=== PATIENT | female | born 1995 | race Caucasian/White ===

== ENCOUNTER 2022-05-19 14:24 | Outpatient (REF) | payer OTHER, SELFPAY ==
[2022-05-20 13:35] LABS: BV Int Neg Control Negative (Negative); BV Int Pos Control Positive (Positive)
[2022-05-20 15:15] LABS: CT PCR DETECTED (Not Detect.); NG PCR NOT DETECTED (Not Detect.)
[2022-05-27 00:54] LABS: HPV mRNA E6/E7 rflx Not Detected (Not Detected)
== END 2022-05-19 14:25 | disposition home or self-care (01) ==
LOC: HO.LNP 14:24
PROVIDERS: PCP Internal Medicine; Visit Provider Advanced Practice Midwife
DX: Z01.419 Encounter for gynecological examination (general) (routine) without abnormal findings (principal); Z11.3 Encounter for screening for infections with a predominantly sexual mode of transmission; F41.8 Other specified anxiety disorders; F53.0 Postpartum depression
CPT/HCPCS: 0353U; 87480; 87510; 87624; 87660; 88142

== ENCOUNTER 2022-05-25 11:33 | Outpatient (REF) | payer OTHER, SELFPAY ==
[2022-05-25 13:52] LABS: MANUAL DIFF FLAG NO
[2022-05-25 13:56] LABS: Basophils Absolute Auto 0.1 X10*3/uL (0.0-0.2); Basophils Percent Auto 1.2 % (0-2); Eosinophils Absolute Auto 0.3 X10*3/uL (0.0-0.4); Eosinophils Percent Auto 4.2 % (0-4); Hematocrit 40.2 % (37.0-47.0); Hemoglobin 13.4 g/dl (12.0-16.0); Imm Gran Abs Auto 0.01 X10*3/uL (0.00-0.03); Imm Gran Pct Auto 0.2 % (0.0-0.4); Lymphocytes Absolute Auto 2.5 X10*3/uL (1.2-4.9); Lymphocytes Percent Auto 37.7 % (20-40); Mean Corpuscular HGB Conc 33.3 g/dl (31.0-35.0); Mean Corpuscular Hemoglobin 30.7 pg (27.0-33.0); Mean Platelet Volume 10.9 fL (9.4-12.3); Monocytes Absolute Auto 0.4 X10*3/uL (0.1-1.2); Monocytes Percent Auto 6.5 % (2-11); Neutrophils Absolute Auto 3.3 x10*3/uL (2.0-8.3); Neutrophils Percent Auto 50.2 % (45-73); Platelet Count 307 X10*3/uL (160-400); Red Blood Count 4.37 X10*6/uL (4.20-5.50); Red Cell Distribution Width 11.9 % (11.0-16.0); White Blood Count 6.6 X10*3/uL (4.8-10.8)
[2022-05-25 14:34] LABS: HBsAGNum1 0.29 S/CO (0.00-0.99); HIV AB/AG Nonreactive (Nonreactive); HIV Num 1 0.06 S/CO (0.00-0.99); Hepatitis B Surface Antigen Negative (Negative); Syphilis Screen Nonreactive (Nonreactive); ~HepC Num1 0.14 S/CO (0.00-0.79); ~Hepatitis C Antibody Nonreactive (Nonreactive)
[2022-05-25 14:44] LABS: Alanine Aminotransferase 50 U/L (0-31); Anion Gap 10 (12-20); Aspartate Amino Transferase 34 U/L (5-31); Blood Urea Nitrogen 11 mg/dL (9-16); Calcium 9.4 mg/dL (8.4-10.2); Carbon Dioxide 28 mmol/L (22-29); Chloride 106 mmol/L (96-108); Cholesterol 158 mg/dL; Estimated Glomerular Filt Rate > 60; Glucose Fasting 84 mg/dL (60-99); HDL Cholesterol 48 mg/dL; LDL Cholesterol Calculated 95 mg/dl; Potassium 4.3 mmol/L (3.3-5.1); Sodium 140 mmol/L (135-145); Triglycerides 75 mg/dL
[2022-05-25 14:51] LABS: Vitamin D 25-OH Total 24.5 ng/mL (>30)
== END 2022-05-25 11:34 | disposition home or self-care (01) ==
LOC: HO.HMGCLDS 11:33
PROVIDERS: Advanced Practice Midwife; PCP Internal Medicine; Visit Provider Internal Medicine
DX: Z00.01 Encounter for general adult medical examination with abnormal findings (principal); F53.0 Postpartum depression; E55.9 Vitamin D deficiency, unspecified; Z79.3 Long term (current) use of hormonal contraceptives; Z20.2 Contact with and (suspected) exposure to infections with a predominantly sexual mode of transmission
CPT/HCPCS: 36415; 80048; 80061; 82306; 84450; 84460; 85025; 86780; 86803; 87340; 87389

== ENCOUNTER → 2022-08-09 16:33 | Outpatient (AMB) | payer OTHER, SELFPAY ==
--- NOTE | 2022-08-09 16:29 | A.OFFPC_ITS ---
Intake Visit Reasons: 6wk medication review [phone] Allergies Doxycycline Hyclate Allergy (Unknown, Verified 11/01/22 16:13) nausea, vomiting, nausea and vomiting bee venom protein (honey bee) Adverse Reaction (Mild, Verified 11/01/22 16:14) hives Medication List - Last Reconciled 08/09/22 by Marilu Casper MD albuterol sulfate 90 mcg/actuation (ProAir HFA) 1 inh inhalation QID PRN bupropion HCl 150 mg PO QAM cholecalciferol (vitamin D3) 1,250 mcg PO QWEEK 3 months desog-e.estradiol/e.estradiol 0.15-0.02 mgx21 /0.01 mg x 5 1 tab PO DAILY Tobacco use date assessed: 08/09/22 HPI 6wk medication review [phone] HPI Details 26-year-old lady with generalized anxiety , here today for follow-up. She has taking bupropion, and has been receiving counseling regularly, feels that counseling is helping more than the medication. Her anxiety is triggered with certain situational events, and has been able to deal with them through breathing techniques that has been taught to her by her therapist. Would like to stop taking bupropion. Has also been getting frequent migraine headaches, at least 3 times a week for several months now. Has been taking ibuprofen and Excedrin which affords only temporary relief. Has sensation of tingling and sees wavy lines just before headache occurs. FORMERLY [facility], [facility] Medical History Chlamydia infection Encounter for counseling regarding contraception Exercise induced bronchospasm Lump of right breast Migraine headache with aura Mixed anxiety and depressive disorder Persistent headaches depression depression Preeclampsia Rash of face Screen for sexually transmitted diseases Screening for malignant neoplasm of cervix Vitamin D deficiency Well woman exam with routine gynecological exam Surgical History H/O eye surgery No pertinent past surgical history Family History Mother Breast cancer, Onset Age: 46 Mental health disorder Paternal Grandmother Diabetes mellitus Breast cancer Maternal Grandfather Arteriosclerotic heart disease (ASHD) Sister Mental health disorder Social History Housing: Apartment Alcohol intake: former Patient Tobacco Use Status: Never used Tobacco e-Cigarette/Vaping Use: Never Used Current occupational status: employed Cognitive needs: No Hearing needs: No Vision needs: No Female Reproductive History Menstrual Age of Menarche: 13 Questionnaire PHQ-9 Over the last 2 weeks, how often have you been bothered by any of the following problems? 1. Little interest or pleasure in doing things: several days 2. Feeling down, depressed, or hopeless: not at all 3. Trouble falling or staying asleep, or sleeping too much: more than half the days 4. Feeling tired or having little energy: more than half the days 5. Poor appetite or overeating: nearly every day 6. Feeling bad about yourself - or that you are a failure or have let yourself or your family down: not at all 7. Trouble concentrating on things, such as reading the newspaper or watching television: several days 8. Moving or speaking so slowly that other people could have noticed. Or the opposite - being so fidgety or restless that you have been moving around a lot more than usual: not at all 9. Thoughts that you would be better off or of hurting yourself in some way: not at all Total score: 9 Depression Screening Interpretation: Positive Depression Screening Follow-up: Existing condition, In treatment and Community Mental Health Worker F/U [id number] - PHQ-9 Billing: Yes Source: Developed by Drs. Alexis Marina, Lupe Muse, Jaren Shetty and colleagues, with an educational karen from [employer]. Thrive Questionnaire Date Thrive assessed: 04/26/22 CONINE-7 AMB Questionnaire CONNIE-7 Date CONNIE - 7 assessed: 06/28/22 Source: Developed by Drs. Alexis Marina, Lupe Muse, Jaren Shetty and colleagues, with an educational karen from [employer]. Review of Systems Const Denies body aches and Denies fever(s) Card Denies chest pain and Denies dyspnea Resp Denies cough and Denies dyspnea GI Denies abdominal pain, Denies change in bowel habits and Denies heartburn Reports no additional complaints Musc Reports no additional complaints Neuro Reports as per HPI Psych Reports as per HPI Ryan/Lymph Reports no additional complaints Aller/Immun Denies seasonal rhinorrhea Physical exam (Primary Care) Tobacco/Smoking Status: Tobacco use Status Tobacco use date assessed 08/09/22 08/09/22 16:31 Patient Tobacco Use Status Never used Tobacco 08/09/22 16:31 e-Cigarette/Vaping Use Never Used 08/09/22 16:31 PHQ-9: PHQ-9 Score PHQ-9: Total score 9 08/09/22 17:26 Depression Screening Interpretation: Positive Depression Screening Follow-up: Existing condition, In treatment and Community Mental Health Worker F/U Thrive Assessment: Date of Thrive Assessment Date Thrive assessed 04/26/22 08/09/22 16:31 Telehealth Telehealth Location of provider rendering services: practice address Location of patient: address on file Telehealth method: video Patient verbally consented to treatment: Yes Patient verbally consented to billing insurance company: Yes Patient informed of any privacy concerns related to visit: Yes Minutes spent on Phone/Video with Pt.: 15 Assessment and Plan Assessment & Plan (1) Migraine headache with aura: Code(s): G43.109 - Migraine with aura, not intractable, without status migrainosus Plan Prescription sent for sumatriptan to take 1 tablet the onset of headache, may repeat another dose if after 2 hours no complete resolution of headache noted. Started also propranolol 20 mg per tablet to take 1 tablet 3 times a day for migraine prophylaxis. Advised to follow-up if no improvement of symptoms noted on current treatment Medications: New sumatriptan succinate take 1 tab at onset of headache; if no relief, may repeat 1 tab after at least 2 hrs; max = 2 tabs/24 hrs PO 10 tabs 1RF G43.109 - Migraine with aura, not intractable, without status migrainosus propranolol 20 mg PO TID 90 tabs 1RF 30 days G43.109 - Migraine with aura, not intractable, without status migrainosus Discontinued bupropion HCl Discontinued Reason: Duplicate 150 mg PO QAM 90 tabs 1RF F41.8 - Other specified anxiety disorders Coding Level of Care Code Tele Est Pt Level 3 (84810) Diagnoses Migraine headache with aura G43.109
== END ==
PROVIDERS: PCP Internal Medicine; Visit Provider Internal Medicine
DX: G43.109 Migraine with aura, not intractable, without status migrainosus (principal)
CPT/HCPCS: 99213

== ENCOUNTER 2022-08-16 12:56 | Outpatient (REF) | payer OTHER, SELFPAY ==
[2022-08-16 18:25] LABS: CT PCR NOT DETECTED (Not Detect.); NG PCR NOT DETECTED (Not Detect.)
[2022-08-17 08:56] LABS: BV Int Neg Control Negative (Negative)
[2022-08-17 08:57] LABS: BV Int Pos Control Positive (Positive)
== END 2022-08-16 12:57 | disposition home or self-care (01) ==
LOC: HO.LNP 12:56
PROVIDERS: PCP Internal Medicine; Visit Provider Advanced Practice Midwife
DX: A74.9 Chlamydial infection, unspecified (principal); R87.610 Atypical squamous cells of undetermined significance on cytologic smear of cervix (ASC-US); Z20.2 Contact with and (suspected) exposure to infections with a predominantly sexual mode of transmission
CPT/HCPCS: 0353U; 87480; 87510; 87660; 99212

== ENCOUNTER 2022-10-20 09:04 | Outpatient (AMB) | payer OTHER, SELFPAY ==
--- NOTE | 2022-10-20 09:59 | MHC.PC.OV ---
Vital Signs 10/20/22 10:01 Height 5 ft 5 in Weight 110 lb BMI 18.3 BP 100/80 Blood Pressure Location Lt brachial Position Sitting Pulse 64 Pulse Source Pulse Oximeter Pulse Oximetry (%) 96 Oxygen Delivery Method Room Air Intake Visit Reasons: Migraine Medication F/U Intake Note: Pt is here today to f/u medication for migraine: medication not working Allergies Doxycycline Hyclate Allergy (Unknown, Verified 10/20/22 10:20) nausea, vomiting, nausea and vomiting Medication List - Last Reconciled 10/20/22 by Marilu Casper MD albuterol sulfate 90 mcg/actuation (ProAir HFA) 1 inh inhalation QID PRN dzulvgxazv-rcwdxbtxnizrq-mgjv 50-325-40 mg 1 tab PO Q6H PRN desog-e.estradiol/e.estradiol 0.15-0.02 mgx21 /0.01 mg x 5 1 tab PO DAILY propranolol 20 mg PO TID 30 days sumatriptan succinate take 1 tab at onset of headache; if no relief, may repeat 1 tab after at least 2 hrs; max = 2 tabs/24 hrs PO Tobacco use date assessed: 10/20/22 Dental Screening Dental Screen Date: 10/20/22 Did you have a dental visit in the last 12 months?: Yes Did you have a dental problem in the last 6 months where you did not have access to dental care?: No Was dental information given to patient?: Patient has dentist HPI Migraine Medication F/U HPI Details 27-year-old lady here today for follow-up regarding headaches, mainly present in the back of her neck, spreading to the back of scalp and forehead. She states that she has been taking sumatriptan at this started headache which has not helped and has been taking propranolol for prophylaxis which also has not been helping. Still getting headaches 3 to 4 times a week, accompanied by occasional episodes of nausea and vomiting. She also has tried massage therapy, tried applying Salonpas patches to posterior neck which has not afforded any improvement. Patient states that she initially started her migraine headaches when she was younger in her teens, has had MRIs done which all came back negative. FORMERLY [facility] Medical History Chlamydia infection Encounter for counseling regarding contraception Exercise induced bronchospasm Lump of right breast Migraine headache with aura Mixed anxiety and depressive disorder Persistent headaches depression depression Preeclampsia Rash of face Screen for sexually transmitted diseases Screening for malignant neoplasm of cervix Vitamin D deficiency Well woman exam with routine gynecological exam Surgical History H/O eye surgery No pertinent past surgical history Family History Mother Breast cancer, Onset Age: 46 Mental health disorder Paternal Grandmother Diabetes mellitus Breast cancer Maternal Grandfather Arteriosclerotic heart disease (ASHD) Sister Mental health disorder Social History Housing: Apartment Alcohol intake: former Patient Tobacco Use Status: Never used Tobacco e-Cigarette/Vaping Use: Never Used Current occupational status: employed Cognitive needs: No Hearing needs: No Vision needs: No Female Reproductive History Menstrual Age of Menarche: 13 Questionnaire Thrive Questionnaire Date Thrive assessed: 04/26/22 CONNIE-7 AMB Questionnaire CONNIE-7 Date CONNIE - 7 assessed: 06/28/22 Source: Developed by Drs. Alexis Marina, Lupe Muse, Jaren Shetty and colleagues, with an educational karen from [employer]. Review of Systems Const All systems reviewed & are unremarkable except as noted in HPI and below Physical exam (Primary Care) Vital Signs: Last Vital Signs Pulse 64 10/20/22 10:01 BP 100/80 10/20/22 10:01 Pulse Ox 96 10/20/22 10:01 Oxygen Delivery Method Room Air 10/20/22 10:01 BMI result Body Mass Index 18.3 Tobacco/Smoking Status: Tobacco use Status Tobacco use date assessed 10/20/22 10/20/22 10:00 Patient Tobacco Use Status Never used Tobacco 10/20/22 10:00 e-Cigarette/Vaping Use Never Used 10/20/22 10:00 Thrive Assessment: Date of Thrive Assessment Date Thrive assessed 04/26/22 10/20/22 10:00 Const General: comfortable, no acute distress, alert and Physically active Nutritional Appearance: average body habitus Orientation/consciousness: patient oriented x3 HENMT Face and sinus: Yes face symmetric Mouth: Normal oral and palatal mucosa present and moist mucous membranes Eyes General: appearance normal, both eyes and all related structures Neck Neck: Yes full ROM, Yes no lymphadenopathy and Yes supple Thyroid: Thyroid normal Resp Effort & Inspection: normal respiratory effort and able to speak in complete sentences Auscultation: clear to auscultation bilaterally Cardio Rate: regular rate Rhythm: regular rhythm Heart sounds: S1 normal heart sound present and S2 normal heart sound present Back/Spine/Pelvis Other: Tenderness to palpation over paraspinal muscles and cervical area Skin General skin exam: no rashes or lesions noted Neuro General: patient oriented x3, gait normal, moves all extremities, Normal light touch and pain sensation, no focal motor deficits and CN's II-XI intact bilaterally Extrem General: Yes normal to inspection, Yes full ROM, Yes no joint enlargement, Yes no pedal edema and Yes normal gait Assessment and Plan Assessment & Plan (1) Persistent headaches: Code(s): R51.9 - Headache, unspecified Plan: Has already tried sumatriptan, propranolol, ibuprofen and Excedrin as well as massage therapy and Salonpas patches, wall which has not afforded any relief. Short prescription for butalbital-acetaminophen and caffeine given to patient to take only as needed for acute episodes of headache no more than 4 times a day. Urgent referral made for neurology evaluation Orders: Referrals Neurology Referral R51.9 - Headache, unspecified Medications: New opmqghzdak-xgnljlzzmplwg-xwhj 50-325-40 mg 1 tab PO Q6H PRN 20 tabs 0RF headache Coding Level of Care Code Est Pt Level 3 (88169) Diagnoses Persistent headaches R51.9
[2022-10-20 10:01] VITALS: BP 100/80; PULSE 64; O2SAT 96; BMI 18.3
== END 2022-10-20 10:29 | disposition home or self-care (01) ==
PROVIDERS: PCP Internal Medicine; Visit Provider Internal Medicine
DX: R51.9 Headache, unspecified (principal)
CPT/HCPCS: 99213

== ENCOUNTER 2022-11-01 15:38 | Outpatient (AMB) | payer OTHER, SELFPAY ==
--- NOTE | 2022-11-01 16:04 | MHC.OFFWIV ---
Intake Vital Signs 11/01/22 16:13 Height 5 ft 5 in BP 126/84 Blood Pressure Location Lt brachial Position Sitting Pulse 78 Pulse Source Pulse Oximeter Temp 97.9 F Temp Source Oral Pulse Oximetry (%) 99 Oxygen Delivery Method Room Air Intake Visit Reasons: EP allergic reaction to bee sting days ago (lobby) Patient Tobacco Use Status: Never used Tobacco Allergies Doxycycline Hyclate Allergy (Unknown, Verified 11/01/22 16:13) nausea, vomiting, nausea and vomiting bee venom protein (honey bee) Adverse Reaction (Mild, Verified 11/01/22 16:14) hives Do you need a note to return to daycare/school/sports/work: No HPI EP allergic reaction to bee sting days ago (lobby) HPI Details 27-year-old female presents to the office for a sick visit. She was stung by a bee on her foot. [facility] Medical History Chlamydia infection Encounter for counseling regarding contraception Exercise induced bronchospasm Lump of right breast Migraine headache with aura Mixed anxiety and depressive disorder Persistent headaches depression depression Preeclampsia Rash of face Screen for sexually transmitted diseases Screening for malignant neoplasm of cervix Vitamin D deficiency Well woman exam with routine gynecological exam Surgical History H/O eye surgery No pertinent past surgical history Family History Mother Breast cancer, Onset Age: 46 Mental health disorder Paternal Grandmother Diabetes mellitus Breast cancer Maternal Grandfather Arteriosclerotic heart disease (ASHD) Sister Mental health disorder Social History Housing: Apartment Alcohol intake: former Patient Tobacco Use Status: Never used Tobacco e-Cigarette/Vaping Use: Never Used Current occupational status: employed Cognitive needs: No Hearing needs: No Vision needs: No Female Reproductive History Menstrual Age of Menarche: 13 Physical Exam Vital Signs: Last Vital Signs Temp 97.9 F 11/01/22 16:13 Pulse 78 11/01/22 16:13 BP 126/84 11/01/22 16:13 Pulse Ox 99 11/01/22 16:13 Oxygen Delivery Method Room Air 11/01/22 16:13 Extrem Other: Right foot: Swollen, pitting edema over the dorsum of the foot. Assessment & Plan Assessment & Plan (1) Bee sting allergy: Code(s): Z91.030 - Bee allergy status Plan: Patient was advised to discontinue the antibiotics started at the other walk-in. Prednisone called in. If symptoms do not improve to follow-up here. Medications: New epinephrine (EpiPen 2-Addy) 0.3 mg (0.3 mL) IM Q4H PRN 2 ea 0RF anaphylaxis prednisone 60 mg (3 x 20 mg) PO DAILY 9 tabs 0RF Coding Level of Care Code Est Pt Level 3 (95683) Diagnoses Bee sting allergy Z91.030
[2022-11-01 16:13] VITALS: BP 126/84; PULSE 78; TEMP 36.6; O2SAT 99
== END 2022-11-01 16:53 | disposition home or self-care (01) ==
PROVIDERS: PCP Internal Medicine; Visit Provider Internal Medicine
DX: Z91.030 Bee allergy status (principal)
CPT/HCPCS: 99213

== ENCOUNTER → 2022-12-03 15:09 | Outpatient (AMB) | payer OTHER, SELFPAY ==
--- NOTE | 2022-12-03 14:06 | A.OFFPC_ITS ---
Intake Visit Reasons: Discuss fatigue Intake Note: pt is here for discuss fatigue Allergies Doxycycline Hyclate Allergy (Unknown, Verified 12/03/22 17:05) nausea, vomiting, nausea and vomiting bee venom protein (honey bee) Adverse Reaction (Mild, Verified 12/03/22 17:05) hives Medication List - Last Reconciled 12/03/22 by Marilu Casper MD albuterol sulfate 90 mcg/actuation (ProAir HFA) 1 inh inhalation QID PRN tfbvtwvkey-jiriralusdnqw-yyyc 50-325-40 mg 1 tab PO Q6H PRN desog-e.estradiol/e.estradiol 0.15-0.02 mgx21 /0.01 mg x 5 1 tab PO DAILY epinephrine (EpiPen 2-Addy) 0.3 mg (0.3 mL) IM Q4H PRN mecobalamin (vitamin B12) 1,000 mcg PO DAILY Tobacco use date assessed: 10/20/22 Dental Screening Dental Screen Date: 12/03/22 Did you have a dental visit in the last 12 months?: Yes Did you have a dental problem in the last 6 months where you did not have access to dental care?: No Was dental information given to patient?: Patient has dentist HPI Discuss fatigue HPI Details Has been getting frequent headache episodes at least 1 every other week, and often times has to leave early for work or call a sick whenever she has a migraine attack..She has appt with neurology in [place] in December. Would like to see if she can get an FMLA form for work. FORMERLY [facility] Medical History Persistent headaches Migraine headache with aura Chlamydia infection Screen for sexually transmitted diseases Screening for malignant neoplasm of cervix Encounter for counseling regarding contraception Well woman exam with routine gynecological exam Lump of right breast Mixed anxiety and depressive disorder Rash of face depression Vitamin D deficiency depression Exercise induced bronchospasm Preeclampsia Surgical History H/O eye surgery No pertinent past surgical history Family History Mother Breast cancer, Onset Age: 46 Mental health disorder Paternal Grandmother Diabetes mellitus Breast cancer Maternal Grandfather Arteriosclerotic heart disease (ASHD) Sister Mental health disorder Social History Housing: Apartment Alcohol intake: former Patient Tobacco Use Status: Never used Tobacco e-Cigarette/Vaping Use: Never Used Current occupational status: employed Cognitive needs: No Hearing needs: No Vision needs: No Female Reproductive History Menstrual Age of Menarche: 13 Questionnaire Thrive Questionnaire Date Thrive assessed: 04/26/22 I am a: Patient What is your living situation today?: I have a steady place to live Within the past 12 months, did the food you bought not last and you didn't have the money to get more?: Sometimes True Within the past 12 months, did you worry whether your food would run out before you got money to buy more?: Sometimes True AUDIT C Alcohol Use Questionnaire (AUDIT-C) 1. How often do you have a drink containing alcohol?: Monthly or less 2. How many drinks containing alcohol do you have on a typical day when you are drinking?: 1 or 2 3. How often do you have six or more drinks on one occasion?: Never Total Score: 1 CONNIE-7 AMB Questionnaire CONNIE-7 Date CONNIE - 7 assessed: 06/28/22 Feeling nervous, anxious, or on edge: 3 = Nearly every day Not being able to stop or control worryin = More than half the days Worrying too much about different things: 2 = More than half the days Trouble relaxin = More than half the days Being so restless that it is hard to sit still: 1 = Several days Becoming easily annoyed or irritable: 2 = More than half the days Feeling afraid as if something awful might happen: 1 = Several days Total CONNIE-7 score (0-4 normal; 5-9 mild; 10-14 moderate; 15-21 severe): 13 Source: Developed by Drs. Alexis Marina, Lupe Muse, Jaren Shetty and colleagues, with an educational karen from [employer]. Review of Systems Const Reports as per HPI, Denies body aches, Denies daytime sleepiness, Denies fever(s) and Denies malaise Eyes Reports no additional complaints ENT Reports no additional complaints Card Denies chest pain, Denies syncope, Denies rapid heart rate, Denies irregular hea rt rhythm and Denies dyspnea Resp Denies cough and Denies dyspnea GI Denies abdominal pain, Denies change in bowel habits and Denies heartburn Reports no additional complaints Musc Reports no additional complaints Neuro Reports as per HPI and Denies syncope Psych Reports as per HPI Endo Reports no additional complaints Ryan/Lymph Reports no additional complaints Aller/Immun Denies seasonal rhinorrhea Physical exam (Primary Care) Tobacco/Smoking Status: Tobacco use Status Tobacco use date assessed 10/20/22 12/03/22 14:08 Patient Tobacco Use Status Never used Tobacco 12/03/22 14:08 e-Cigarette/Vaping Use Never Used 12/03/22 14:08 Thrive Assessment: Date of Thrive Assessment Date Thrive assessed 04/26/22 12/03/22 14:08 Telehealth Telehealth Location of provider rendering services: practice address Location of patient: address on file Patient Identification confirmed using: Name, : Yes Telehealth method: video Patient verbally consented to treatment: Yes Patient verbally consented to billing insurance company: Yes Patient informed of any privacy concerns related to visit: Yes Minutes spent on Phone/Video with Pt.: 15 Assessment and Plan Assessment & Plan (1) Persistent headaches: Code(s): R51.9 - Headache, unspecified Plan: Takes Fioricet as needed, already has an appointment to see [facility] neurology in December 2022 . Patient advised to bring an FMLA form to clinic to be completed. (2) Vitamin D deficiency: Code(s): E55.9 - Vitamin D deficiency, unspecified Plan: Will check vitamin-D level (3) Fatigue: Code(s): R53.83 - Other fatigue Plan: Ordered CBC with differential, TSH with reflex free T4, vitamin B12 and folic acid, vitamin-D and Lyme titer Orders: Orders Complete Blood Count Auto Diff 12/03/22 E55.9 - Vitamin D deficiency, unspecified, R51.9 - Headache, unspecified, R53.83 - Other fatigue TSH reflex Free T4 12/03/22 E55.9 - Vitamin D deficiency, unspecified, R51.9 - Headache, unspecified, R53.83 - Other fatigue Comprehensive [place]. Panel Fast 12/03/22 E55.9 - Vitamin D deficiency, unspecified, R51.9 - Headache, unspecified, R53.83 - Other fatigue Vitamin B12 and Folate 12/03/22 E55.9 - Vitamin D deficiency, unspecified, R51.9 - Headache, unspecified, R53.83 - Other fatigue Vitamin D 25-OH Total 12/03/22 E55.9 - Vitamin D deficiency, unspecified, R51.9 - Headache, unspecified, R53.83 - Other fatigue Lyme IgG/IgM w/reflex to WB 12/03/22 E55.9 - Vitamin D deficiency, unspecified, R51.9 - Headache, unspecified, R53.83 - Other fatigue Coding Level of Care Code Tele Est Pt Level 3 (51568) Diagnoses Persistent headaches R51.9 Vitamin D deficiency E55.9 Fatigue R53.83
== END ==
PROVIDERS: PCP Internal Medicine; Visit Provider Internal Medicine
DX: R51.9 Headache, unspecified (principal); E55.9 Vitamin D deficiency, unspecified; R53.83 Other fatigue
CPT/HCPCS: 99213

== ENCOUNTER 2022-12-10 08:26 | Outpatient (REF) | payer OTHER, SELFPAY ==
[2022-12-10 11:18] LABS: MANUAL DIFF FLAG NO
[2022-12-10 11:37] LABS: Basophils Absolute Auto 0.1 X10*3/uL (0.0-0.2); Basophils Percent Auto 1.1 % (0-2); Eosinophils Absolute Auto 0.6 X10*3/uL (0.0-0.4); Eosinophils Percent Auto 8.3 % (0-4); Hematocrit 43.7 % (37.0-47.0); Hemoglobin 14.5 g/dl (12.0-16.0); Imm Gran Abs Auto 0.01 X10*3/uL (0.00-0.03); Imm Gran Pct Auto 0.2 % (0.0-0.4); Lymphocytes Absolute Auto 2.1 X10*3/uL (1.2-4.9); Lymphocytes Percent Auto 31.9 % (20-40); Mean Corpuscular HGB Conc 33.2 g/dl (31.0-35.0); Mean Corpuscular Hemoglobin 30.9 pg (27.0-33.0); Mean Platelet Volume 11.3 fL (9.4-12.3); Monocytes Absolute Auto 0.3 X10*3/uL (0.1-1.2); Monocytes Percent Auto 5.1 % (2-11); Neutrophils Absolute Auto 3.6 x10*3/uL (2.0-8.3); Neutrophils Percent Auto 53.4 % (45-73); Platelet Count 271 X10*3/uL (160-400); Red Cell Distribution Width 11.4 % (11.0-16.0); White Blood Count 6.6 X10*3/uL (4.8-10.8)
[2022-12-10 13:05] LABS: Folate 11.6 ng/mL (> or = 4.0); Vitamin B12 650 pg/mL (200-900)
[2022-12-10 14:38] LABS: Alanine Aminotransferase 16 U/L (0-31); Albumin Level 4.3 g/dL (3.5-5.0); Alkaline Phosphatase 45 U/L (39-117); Anion Gap 12 (12-20); Aspartate Amino Transferase 18 U/L (5-31); Bilirubin Total 0.6 mg/dL (0.0-1.0); Blood Urea Nitrogen 10 mg/dL (9-16); Calcium 9.5 mg/dL (8.4-10.2); Carbon Dioxide 25 mmol/L (22-29); Chloride 106 mmol/L (96-108); Estimated Glomerular Filt Rate > 60; Glucose Fasting 91 mg/dL (60-99); Potassium 4.2 mmol/L (3.3-5.1); Sodium 139 mmol/L (135-145); TSH reflex Free T4 1.49 uIU/mL (0.32-4.0); Vitamin D 25-OH Total 66.5 ng/mL (>30)
[2022-12-13 19:44] LABS: Lyme Abs Screen <0.90 index
== END 2022-12-10 08:27 | disposition home or self-care (01) ==
LOC: HO.HMGCLDS 08:26
PROVIDERS: PCP Internal Medicine; Visit Provider Internal Medicine
DX: R51.9 Headache, unspecified (principal); E55.9 Vitamin D deficiency, unspecified; R53.83 Other fatigue
CPT/HCPCS: 36415; 80053; 82306; 82607; 82746; 84443; 85025; 86617; 86618

== ENCOUNTER 2023-01-21 09:52 | Outpatient (AMB) | payer OTHER, SELFPAY ==
--- NOTE | 2023-01-21 10:00 | A.OFFVIS_ITS ---
Intake Vital Signs 01/21/23 10:01 Height 5 ft 5 in Weight 110 lb 2 oz BMI 18.3 BP 120/78 Blood Pressure Location Lt brachial Position Sitting Pulse 69 Pulse Source Pulse Oximeter Pulse Oximetry (%) 100 Oxygen Delivery Method Room Air Intake Visit Reasons: I-[employer]: Headache, unspecified/Sleep disorder-Conf Intake Note: New patient present today for Headache and unspecified sleep disorder. Patient has a history of headaches since the age of 4. No previous treatment. She use to get headaches every other week but now they are migraines every other day. Butalbital seems to help only at times. Migraine can last up to 3 days. Foot Worker Required: No Accompanied by: Self / Same As Patient Allergies Doxycycline Hyclate Allergy (Unknown, Verified 01/21/23 10:12) nausea, vomiting, nausea and vomiting bee venom protein (honey bee) Adverse Reaction (Mild, Verified 01/21/23 10:12) hives Medication List - Last Reconciled 01/21/23 by Danelle Turcios, MARCELINA albuterol sulfate 90 mcg/actuation (ProAir HFA) 1 inh inhalation QID PRN htrxkexghy-yrsmdeebkfjam-pdir 50-325-40 mg 1 tab PO Q6H PRN desog-e.estradiol/e.estradiol 0.15-0.02 mgx21 /0.01 mg x 5 1 tab PO DAILY epinephrine (EpiPen 2-Addy) 0.3 mg (0.3 mL) IM Q4H PRN HPI HPI Comments History of Present Illness Details Right-handed 27-yr-old female presents for new pt evaluation of headache disorder, specifically []. She started having headaches at age 4. At that time, she had neuro work-up which was normal. She has since had headaches on and off, but more recently have been increasing in frequency and severity. In the alst 3-4 months, the headcahe is now every other day. Headache questionnaire: Age/time of onset? 4 yo Preceding causes? None Previous work-up? As a child Typical headache characteristics: Prodrome symptoms? None Aura? Denies. PCP note mentions seeing wavy lines and tingling prior to onset of headache. Location, quality, characteristics? 1st s/s is blurry vision, usually right eye/frontal, right occipital/neck pain. Throbbing pain. Pain intensity? at worst 8-9/10 Associated symptoms? Photophobia, phonophobia, osmophobia, allodynia, N/V, some dizziness, brain fog, activity intolerance, fatigue/tiredness. Focal weakness, Parethesias, Autonomic s/s? Denies Postdrome? Residual headache Triggers? Maybe computer Any positional, valsalva, exertional, sexual activity triggers? None Menstrual triggers? None- on OCP Time of day? No specific time of day Duration? hours-3 days Frequency? Almost every other day- > 15 days per month. How does headache impact your life? Has missed work. 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 Current acute medication use/interventions: Kathy- works at the very [employer], but not always. Previous acute medication use: Sumatriptan 100mg ineffective Current preventative medication use: None Previous preventative medication use: Propranolol 20mg tid x's > 3 months- ineffective. Non-pharmacological interventions: Rest. Heta may help. Other history of headache disorder? None History of musculoskeletal disorders or injury? Has chronic neck and back pain, was told her hips were off- sees a chiropractor. History of concussion/head injury? Softball injury- concussion at age 13-14 yo History of mood disorder? Depression and anxiety- in therapy History of sleep disorder? More recently exhausted all the day. Endorses excessive daytime tiredness. Sleep varies- her 3 yr old son does not sleep well. History of respiratory disease? Activity induced asthma History of CV disease? None History of coagulopathy? None History of endocrine or metabolic disease? None History of seizure? None History of GI disorder? None. Denies constipation. Other? States has both STM and LTM lapses. Has to write everything done- for instance, when she receives a call she needs to write the name and right away. Has been working w/ her therapist. Was not a good student- thinks was r/t depression. Completed high school. Family planning? Does plan to have more children in a year or two. Family history of migraine or other headache disorder? None. [facility] Medical History Persistent headaches Migraine headache with aura Chlamydia infection Screen for sexually transmitted diseases Screening for malignant neoplasm of cervix Encounter for counseling regarding contraception Well woman exam with routine gynecological exam Lump of right breast Mixed anxiety and depressive disorder Rash of face depression Vitamin D deficiency depression Exercise induced bronchospasm Preeclampsia Surgical History H/O eye surgery No pertinent past surgical history Family History Mother Breast cancer, Onset Age: 46 Mental health disorder Paternal Grandmother Diabetes mellitus Breast cancer Maternal Grandfather Arteriosclerotic heart disease (ASHD) Sister Mental health disorder Social History Housing: Apartment Alcohol intake: former Patient Tobacco Use Status: Never used Tobacco e-Cigarette/Vaping Use: Never Used Current occupational status: employed Cognitive needs: No Hearing needs: No Vision needs: No Female Reproductive History Menstrual Age of Menarche: 13 Review of Systems Const Details: See scanned ROS form Physical Exam Vital Signs: Last Vital Signs Pulse 69 01/21/23 10:01 BP 120/78 01/21/23 10:01 Pulse Ox 100 01/21/23 10:01 Oxygen Delivery Method Room Air 01/21/23 10:01 BMI result Body Mass Index 18.3 Const Orientation/consciousness: patient oriented x3 HEENT Other: No palpable scalp tenderness. Head: Yes normocephalic Resp Effort & Inspection: normal respiratory effort and able to speak in complete sentences Neuro Other: EOM intact- left lateral gaze elicits vertical diplopia (pt states can self induce this diplopia) General: patient oriented x3 Cranial nerves: Yes CN's II-XII intact bilaterally Cognition (Neuro): normal cognition Gait exam (Neuro): Normal gait present Motor exam (neuro): 5/5 motor strength present throughout Deep tendon reflexes (DTR's): Right triceps reflex intensity grade: 2+, Left triceps reflex intensity grade: 2+, Rt Biceps (C5, C6): 2+, Left biceps reflex intensity grade: 2+, Right brachioradialis reflex intensity grade: 2+, Left brachioradialis reflex intensity grade: 2+, Right patellar reflex intensity grade: 2+ and Left patellar reflex intensity grade: 2+ Coordination: tzpubb-ql-grbo test normal Pupils: Normal pupillary reactivity/response: bilateral Psych Appearance: grossly normal Mental Status: mental status grossly normal Speech and movement: Normal speech and movement present Affect: normal affect Attitude: cooperative Thought process: Normal thought process present Assessment & Plan Assessment & Plan (1) Migraine headache with aura: Code(s): G43.109 - Migraine with aura, not intractable, without status migrainosus (2) Fatigue: Code(s): R53.83 - Other fatigue (3) Memory difficulties: Code(s): R41.3 - Other amnesia Plan For overall headache management: Discussed importance of good self-care, including but not limited to maintaining a healthy diet, adequate fluid intake, adequate sleep, and engaging in regular physical activity. For headache triggers: Track headaches, especially after any treatment regimen changes. Migraine [employer] is one of many headache tracking apps. Light sensitivity tips: Patient may try blue light filtering glasses, green glasses, green light therapy. For acute headache treatment: Discussed importance of taking acute medications at the first sign of headache, however stressed importance of avoiding acute medication overuse (especially with combined headache medications). Trial Rizatriptan 10mg tab, 1/2 - 1 tab (5-10mg) at onset of headache, may repeat in 2 hours. Max of 2 tabs (200mg) per 24 hours. May adjunct with OTC Tylenol 650mg q 4 hours, Ibuprofen (liquigel) 600mg q 6 hours, or Naproxen (liquigel) 440mg q 12 hrs prn. May continue Fioricet for now- refilled as capsule per pt request (feels more effective)- however goal is to find a more effective agent. Zofran ODT 4-8mg prn (max 6 tabs per day). Previous acute migraine medication trials: Sumatriptan 100mg - ineffective. Acute migraine medication contraindications: For headache prevention medication: Discussed that preventative medications should be taken routinely as prescribed for best effect, it may take several weeks for full effect to take effect. Start Riboflavin 400mg qam Start Magnesium 400mg qhs Start Topiramate 25-50mg qhs. Previous migraine prevention medication trials: Propranolol 20mg tid- ineffective after > 12 wks. Migraine prevention medication contraindications: Would avoid Amitriptyline d/t pt is alone at home w/ very young children. Future considerations: CGRP MaB Monitor effect of above on fatigue and cognitive difficulties. Future considerations: sleep study, neuro-psych eval. Pt to follow-up in 3-4 months or sooner prn. Medications: New topiramate 25 - 50 mg (1 - 2 x 25 mg) PO BEDTIME 30 days 60 tabs 3RF ondansetron Max 6 tabs per day 4 - 8 mg (1 - 2 x 4 mg) PO Q6-8H 30 days PRN 30 tabs 2RF nausea and vomiting magnesium oxide may hold for loose stools 400 mg PO BEDTIME 30 days 30 tabs 6RF riboflavin (vitamin B2) 400 mg PO DAILY 30 days 30 tabs 6RF rizatriptan max 2 tabs per day or 4 tabs per week 5 - 10 mg (0.5 - 1 x 10 mg) PO Q2H 21 days PRN 12 tabs 3RF migraine headache odcxnmxtlt-cmojxkspbqcvl-hatf 50-325-40 mg max 2 caps per day or 4 caps per week 1 cap PO Q4H 30 days PRN 20 caps 2RF pain Coding Level of Care Code New Pt Level 4 (57272) Diagnoses Migraine headache with aura G43.109 Fatigue R53.83 Memory difficulties R41.3
[2023-01-21 10:01] VITALS: BP 120/78; PULSE 69; O2SAT 100; BMI 18.3
== END 2023-01-21 11:13 | disposition home or self-care (01) ==
PROVIDERS: PCP Internal Medicine; Visit Provider Nurse Practitioner Family
DX: G43.109 Migraine with aura, not intractable, without status migrainosus (principal); R53.83 Other fatigue; R41.3 Other amnesia
CPT/HCPCS: 99204

== ENCOUNTER → 2023-01-21 09:52 | Outpatient (BNVA) | payer OTHER, SELFPAY | PROVIDERS: PCP Internal Medicine; Visit Provider Nurse Practitioner Family ==

== ENCOUNTER → 2023-05-26 14:59 | Outpatient (BNVA) | payer OTHER, SELFPAY | PROVIDERS: Visit Provider Advanced Practice Midwife ==

== ENCOUNTER 2023-05-27 13:10 | Outpatient (AMB) | payer OTHER, SELFPAY ==
[2023-05-27 13:19] VITALS: BP 110/76; BMI 18.1
--- NOTE | 2023-05-27 13:19 | A.OFFVIS_ITS ---
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 It Support Consultant Required: No Information Interpreted: clinical only Mammal Control Agent: Mammal Control Agent Present Allergies Doxycycline Hyclate Allergy (Unknown, Verified 05/27/23 13:20) nausea, vomiting, nausea and vomiting bee venom protein (honey bee) Adverse Reaction (Mild, Verified 05/27/23 13:20) hives Medication List - Last Reconciled 05/27/23 by Kimmy Chairez CNM albuterol sulfate 90 mcg/actuation (ProAir HFA) 1 inh inhalation QID PRN rizatriptan 5 - 10 mg (0.5 - 1 x 10 mg) PO Q2H PRN 21 days Is last menstrual period known: Yes Last menstrual period: 05/30/23 Do you need a note to return to daycare/school/sports/work: No HPI 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 She does however notice that she does get premenstrual mood changes and she noticed that a lot when she was on pills to and she is feeling generally speaking better mood salazar since she has been off the pills. She has not been contraceptive thing since and has just been crossing her fingers she has a 1-year-old and a 2-year-old. She got from her ex- in the past year and says this was a good thing. She had chlamydia last year as well as a Pap smear that was abnormal and that was soon after she had started with this particular partner they have both been treated for the chlamydia and she is hoping it is gone she has no current worries about STDs as that testing was soon after they had started. She is interested in starting another method of control and we reviewed all of the methods through this visit. ON LICENSE OF [facility] Medical History (Updated 05/27/23 @ 14:06 by Kimmy Chairez CNM) Persistent headaches Migraine headache with aura Chlamydia infection Screen for sexually transmitted diseases Screening for malignant neoplasm of cervix Encounter for counseling regarding contraception Well woman exam with routine gynecological exam Lump of right breast Mixed anxiety and depressive disorder Rash of face depression Vitamin D deficiency depression Exercise induced bronchospasm Preeclampsia Surgical History H/O eye surgery No pertinent past surgical history Family History Mother Breast cancer, Onset Age: 46 Mental health disorder Paternal Grandmother Diabetes mellitus Breast cancer Maternal Grandfather Arteriosclerotic heart disease (ASHD) Sister Mental health disorder Social History Housing: Apartment Alcohol intake: former Patient Tobacco Use Status: Never used Tobacco e-Cigarette/Vaping Use: Never Used Current occupational status: employed Cognitive needs: No Hearing needs: No Vision needs: No Female Reproductive History Menstrual Age of Menarche: 13 Duration of menses: 3-5 days Date of last menstrual period: 05/30/23 control method: none Total pregnancies: 3 Full term: 2 Date of last pap smear: 05/20/22 (epithelial cell abnormality) History of abnormal pap smear: Yes Physical Exam Vital Signs: Last Vital Signs BP 110/76 05/27/23 13:19 BMI result Body Mass Index 18.1 Const General: healthy appearing, comfortable, no acute distress, well developed and alert Nutritional Appearance: average body habitus Orientation/consciousness: patient oriented x3 Limitations: no limitations HEENT Head: Yes normocephalic Neck Neck: Yes normal visual inspection Chest Chest palpation & inspection: normal inspection of the chest Breast/axilla inspection: normal inspection of the breasts and normal inspection of the axillae Breast/axilla palpation: normal palpation of the breasts and normal palpation of the axillae Resp Effort & Inspection: normal respiratory effort GI Inspection: Yes normal to inspection, No Abdominal wall edema and No distended Palpation (GI): Soft to palpation and nontender Other: Vagina pink and moist cervix multiparous pink smooth nonfriable abundant creamy discharge. Uterus small anteverted slightly levo rotated nontender mobile adnexa nontender good tone with Kegel General: Yes bladder normal to palpation External Female Exam: normal external appearance and normal appearance of the urethra Speculum Exam - Vagina: normal appearance of the vagina, normal palpation and normal vaginal discharge Speculum Exam - Cervix: normal appearance of the cervix, normal palpation and nontender Bimanual exam- vagina & uterus: normal bimanual exam, normal palpation, uterine size normal, bladder normal to palpation, consistency normal, normal palpation, uterine mobility normal, uterine shape normal, No Cervical tenderness present, non-tender and no cervical motion tenderness Bimanual Exam- Adnexa, other: normal adnexae, no masses, normal and No adnexal tenderness Neuro General: patient oriented x3 Assessment & Plan Assessment & Plan (1) ASCUS of cervix with negative high risk HPV: Comment: 05/20/22 pap= ascus w neg hpv./ 2' screening hx, consider repap 1 yr instead of 3 yrs Code(s): R87.610 - Atypical squamous cells of undetermined significance on cytologic smear of cervix (ASC-US) (2) Chlamydia infection: Comment: 05/20/2022, to be Rx with doxy Cyclen x7 days, partner treatment and other testing; testing done with annual testing 05/27/2023. Discussed at length. Code(s): A74.9 - Chlamydial infection, unspecified (3) Worsening headaches: Comment: Patient states they resolved after she stopped the combination control pills. Discussed all available options not containing estrogen today, she chose and will start on progestin only pills with the next menses Code(s): R51.9 - Headache, unspecified (4) Migraine headache with aura: Code(s): G43.109 - Migraine with aura, not intractable, without status migrainosus (5) BCP ( control pills) initiation: Code(s): Z30.011 - Encounter for initial prescription of contraceptive pills Plan -----Discussed in this visit the following: healthy balanced diet, regular and consistent exercise, getting recommended health screens, doing the best she can for her particular health concerns, kegel exercises, pap smear screening and followup recommendations, mammography screening and SBE, normal changes in cycles in her life stage--- .-I reviewed with the patient, all of the currently common used methods of control that are available. We reviewed how they work in the body, how they are taken, common side effects, uncommon side effects, precautions, and contraindications. -Discussed also factors that influence their effectiveness and use, and womens satisfaction with the method. -Discussed how each are used, and drawbacks of each method as well. -Methods covered included: condoms, control pills, control patches, control rings, Depo-Provera, Nexplanon, Mirena and Kyleena IUDs, and ParaGard IUDs. If interested, we also covered methods such as diaphragms, cervical caps, tubal ligations, vasectomies, abstinence, fertility awareness and Plan B. ---Discussed STIs, exposure, transmission, symptoms, and prevention, Testing was ordered/ performed as per plan and orders. Testing for STIs done today she did not feel she needed any blood work for HIV or other tests. She is confident about her partner this year as now they have been steadily together for year. Will reassess for the chlamydia and treat as necessary. Safer sex discussed. Prescription sent for progestin only pills. I recommend she start them with the 1st full day of her next period whenever that is I reviewed her menses on the appt and it appeared that she has data that makes the appt tell her she is going to get her next period around day 35 which only makes sense if she gets 35 day cycles however that is what it says but regardless I want her to start the pills at the beginning of the next. I reviewed how to take the pills and that there are no placebo pills in this particular formulation and she will will get her. Whenever she would be expected to get it we will see her in 3 months to see how she is doing. Medications: New norethindrone (contraceptive) Start with the beginning of her next period 0.35 mg PO DAILY 84 tabs 3RF Coding Level of Care Code Est Pt Prev Care 18-39y(84330) Diagnoses ASCUS of cervix with negative high risk HPV R87.610 Chlamydia infection A74.9 Worsening headaches R51.9 Migraine headache with aura G43.109 BCP ( control pills) initiation Z30.011
== END 2023-05-27 14:08 | disposition home or self-care (01) ==
LOC: HO.HWSM 13:17
PROVIDERS: PCP Internal Medicine; Visit Provider Advanced Practice Midwife
DX: Z01.419 Encounter for gynecological examination (general) (routine) without abnormal findings (principal); R87.610 Atypical squamous cells of undetermined significance on cytologic smear of cervix (ASC-US)
CPT/HCPCS: 99395

== ENCOUNTER 2023-05-27 13:10 | Outpatient (REF) | payer OTHER, SELFPAY ==
[2023-05-28 05:24] LABS: CT PCR NOT DETECTED (Not Detect.); NG PCR NOT DETECTED (Not Detect.)
[2023-05-28 13:48] LABS: BV Int Neg Control Negative (Negative); BV Int Pos Control Positive (Positive)
== END 2023-05-27 13:11 | disposition home or self-care (01) ==
LOC: HO.LAB 13:10
PROVIDERS: PCP Internal Medicine; Visit Provider Advanced Practice Midwife
DX: Z01.419 Encounter for gynecological examination (general) (routine) without abnormal findings (principal); R87.610 Atypical squamous cells of undetermined significance on cytologic smear of cervix (ASC-US); A74.9 Chlamydial infection, unspecified; R51.9 Headache, unspecified; Z20.2 Contact with and (suspected) exposure to infections with a predominantly sexual mode of transmission; Z79.899 Other long term (current) drug therapy
CPT/HCPCS: 0353U; 87480; 87510; 87660; 88142

== ENCOUNTER 2023-06-10 13:19 | Outpatient (AMB) | payer OTHER, SELFPAY ==
[2023-06-10 14:02] VITALS: BP 120/80; PULSE 97; O2SAT 97
--- NOTE | 2023-06-10 14:02 | AM.OFFWIN_ITS ---
Intake Vital Signs 06/10/23 14:02 Weight 109 lb BP 120/80 Blood Pressure Location Rt brachial Position Sitting Pulse 97 Pulse Source Pulse Oximeter Pulse Oximetry (%) 97 Oxygen Delivery Method Room Air Intake Visit Reasons: EP ? Patient Tobacco Use Status: Never used Tobacco Allergies Doxycycline Hyclate Allergy (Unknown, Verified 06/10/23 14:07) nausea, vomiting, nausea and vomiting bee venom protein (honey bee) Adverse Reaction (Mild, Verified 06/10/23 14:07) hives Do you need a note to return to daycare/school/sports/work: No HPI HPI Comments History of Present Illness Details 27 y/o female patient who presents to nita crawley in clinic for test. Pt is ~ 5 weeks , LMP 05/06/23. Pt asking for Lab result print out. Pt will establish care with Employee Relations Specialist. [facility] Medical History (Updated 05/27/23 @ 14:06 by Kimmy Chairez CNM) Persistent headaches Migraine headache with aura Chlamydia infection Screen for sexually transmitted diseases Screening for malignant neoplasm of cervix Encounter for counseling regarding contraception Well woman exam with routine gynecological exam Lump of right breast Mixed anxiety and depressive disorder Rash of face depression Vitamin D deficiency depression Exercise induced bronchospasm Preeclampsia Surgical History H/O eye surgery No pertinent past surgical history Family History Mother Breast cancer, Onset Age: 46 Mental health disorder Paternal Grandmother Diabetes mellitus Breast cancer Maternal Grandfather Arteriosclerotic heart disease (ASHD) Sister Mental health disorder Social History Housing: Apartment Alcohol intake: former Patient Tobacco Use Status: Never used Tobacco e-Cigarette/Vaping Use: Never Used Current occupational status: employed Cognitive needs: No Hearing needs: No Vision needs: No Female Reproductive History Menstrual Age of Menarche: 13 Review of Systems Const All systems reviewed & are unremarkable except as noted in HPI and below Physical Exam Vital Signs: Last Vital Signs Pulse 97 06/10/23 14:02 BP 120/80 06/10/23 14:02 Pulse Ox 97 06/10/23 14:02 Oxygen Delivery Method Room Air 06/10/23 14:02 Const General: comfortable and no acute distress Orientation/consciousness: patient oriented x3 Neuro General: patient oriented x3, gait normal and moves all extremities Psych Speech and movement: Normal speech and movement present Attitude: cooperative Results AMB Test Urine AMB Test Urine Positive Last Edit by ELIANA Booth on 06/10/23 14:04 Results Reviewed Results Reviewed: Laboratory Last Values Tst Clinic Positive 06/10/23 14:03 Assessment & Plan Assessment & Plan (1) : Code(s): Z34.90 - Encounter for supervision of normal , unspecified, unspecified trimester Qualifiers: Weeks of gestation: less than 8 weeks Qualified Code(s): Z3A.01 - Less than 8 weeks gestation of Plan - Blood HCG ordered - Printed Lab results - Urine HCG Positive. Orders: Orders AMB HCG Urine Test Today Z32.01 - Encounter for test, result positive HCG Quantitative Today Z34.90 - Encounter for supervision of normal , unspecified, unspecified trimester Coding Level of Care Code Est Pt Level 2 (79978) Diagnoses Less than 8 weeks gestation of Z3A.01 Weeks of gestation: less than 8 weeks Time Spent (min) 8
== END 2023-06-10 14:24 | disposition home or self-care (01) ==
PROVIDERS: PCP Internal Medicine; Visit Provider Nurse Practitioner Family
DX: N92.6 Irregular menstruation, unspecified (principal); Z32.01 Encounter for pregnancy test, result positive
CPT/HCPCS: 81025; 99212

== ENCOUNTER 2023-06-10 14:19 | Outpatient (REF) | payer OTHER, SELFPAY ==
[2023-06-10 16:25] LABS: HCG Quantitative 1773 mIU/mL
== END 2023-06-10 14:20 | disposition home or self-care (01) ==
LOC: HO.HMGCLDS 14:19
PROVIDERS: PCP Internal Medicine; Visit Provider Nurse Practitioner Family
DX: Z34.90 Encounter for supervision of normal pregnancy, unspecified, unspecified trimester (principal)
CPT/HCPCS: 36415; 84702

== ENCOUNTER 2023-08-26 14:05 | Outpatient (AMB) | payer OTHER, SELFPAY ==
--- NOTE | 2023-08-26 14:17 | MHC.OFFVIS ---
Vital Signs 08/26/23 14:19 Height 5 ft 5 in Weight 115 lb BMI 19.1 BP 106/72 Blood Pressure Location Rt brachial Position Sitting Pulse 87 Pulse Source Pulse Oximeter Pulse Oximetry (%) 96 Oxygen Delivery Method Room Air Intake Visit Reasons: 4 mo f/u Headache-Confirmed Intake Note: Patient presents for follow up headache. patient is . Allergies Doxycycline Hyclate Allergy (Unknown, Verified 08/26/23 14:23) nausea, vomiting, nausea and vomiting bee venom protein (honey bee) Adverse Reaction (Mild, Verified 08/26/23 14:23) hives Medication List - Last Reconciled 08/26/23 by Danelle Turcios, MARCELINA albuterol sulfate 90 mcg/actuation (ProAir HFA) 1 inh inhalation QID PRN mv-min [id number] 180 mcg-25 mg- 25 mg (Alive Daily Support ) tabs PO norethindrone (contraceptive) 0.35 mg PO DAILY HPI Comments Details: 27-yr-old female presents for f/u visit for migraine. Pt reports she is 16 weeks . Note she became while attempting to adjust her control, in hopes of improving her migraine control. Patient states that her is being followed closely d/t presence of nuchal cord. In her previous 2 pregnancies, she reports she had increased headaches during her , as well as eclampsia and preeclampsia. She was started on ASA 162mg qd. F/B [facility]. Once patient realized she was at 4 weeks, she stopped all her headache medications, other than Tylenol which does not help. She has been having an increase in her typical migraine. She is now missing 1-3 work days per week. She works for [employer], from home, is on a computer all day. Her employer is wondering if her FMLA should be changed from intermittent to continuous. Patient however, is not interested in taking an extended leave of absence prior to delivery. Her current FMLA form allows her up to 2 missed days of work per week. Baseline headache characteristics: Aura: Denies. PCP note mentions seeing wavy lines and tingling prior to onset of headache. Headache: 1st s/s is blurry vision, followed by severe throbbing usually right eye/frontal, right occipital/neck pain a/w photophobia, phonophobia, osmophobia, allodynia, N/V, some dizziness, brain fog, activity intolerance, fatigue/tiredness. Postdrome: Residual headache PFSH Medical History (Updated 08/27/23 @ 15:03 by MARCELINA Chen) Persistent headaches Migraine headache with aura Chlamydia infection Screen for sexually transmitted diseases Screening for malignant neoplasm of cervix Encounter for counseling regarding contraception Well woman exam with routine gynecological exam Lump of right breast Mixed anxiety and depressive disorder Rash of face depression Vitamin D deficiency depression Exercise induced bronchospasm Preeclampsia Surgical History H/O eye surgery No pertinent past surgical history Family History Mother Breast cancer, Onset Age: 46 Mental health disorder Paternal Grandmother Diabetes mellitus Breast cancer Maternal Grandfather Arteriosclerotic heart disease (ASHD) Sister Mental health disorder Social History Housing: Apartment Alcohol intake: former Patient Tobacco Use Status: Never used Tobacco e-Cigarette/Vaping Use: Never Used Current occupational status: employed Cognitive needs: No Hearing needs: No Vision needs: No Female Reproductive History Menstrual Age of Menarche: 13 Physical Exam Vital Signs: Last Vital Signs Pulse 87 08/26/23 14:19 BP 106/72 08/26/23 14:19 Pulse Ox 96 08/26/23 14:19 Oxygen Delivery Method Room Air 08/26/23 14:19 BMI result Body Mass Index 19.1 Const General: cooperative and no acute distress Orientation/consciousness: patient oriented x3 Resp Effort & Inspection: normal respiratory effort and able to speak in complete sentences Neuro General: patient oriented x3 Cranial nerves: Yes CN's II-XII intact bilaterally Cognition (Neuro): normal cognition Psych Appearance: grossly normal Mental Status: mental status grossly normal Speech and movement: Normal speech and movement present Affect: normal affect Attitude: cooperative Assessment & Plan Assessment & Plan (1) Migraine headache with aura: Comment: Increased headaches likely r/t pt stopping migraine tx for . Code(s): G43.109 - Migraine with aura, not intractable, without status migrainosus Category: Medical (2) : Code(s): Z34.90 - Encounter for supervision of normal , unspecified, unspecified trimester Category: Medical Plan For overall headache management: Continue to optimize good self-care, including but not limited to maintaining a healthy diet, adequate fluid intake, adequate sleep, and engaging in regular physical activity. For photophobia: Patient may try blue light filtering glasses, green glasses, green light therapy. Track headaches. Pt to notify us and/or her OB w/ any new/worrisome headache sysmptoms. ? For acute headache treatment: Discussed importance of taking acute medications at the first sign of headache, however stressed importance of avoiding acute medication overuse. Discussed that triptans have well-established safety in , more so with Sumatriptan however pt has not tolerated Sumatriptan before. She has tolerated Rizatriptan well, so she may use Rizatriptan sparingly. I would not try her on a new triptan while . Rizatriptan 10mg tab, 1/2 - 1 tab (5-10mg) at onset of headache, may repeat in 2 hours. Max of 2 tabs (200mg) per 24 hours. May adjunct with OTC Tylenol 650mg q 4 hours prn. Trial Metoclopramide 5mg qid prn- for migraine headache and nausea. Stop Fioricet. Stop Zofran ODT 4-8mg prn. Previous acute migraine medication trials: Sumatriptan 100mg - ineffective. Acute migraine medication contraindications: NSAIDs, DHE, ditans, gepant d/t . Future considerations- lidocaine nasal spray.? For headache prevention medication: She may resume Riboflavin 400mg qam if her OB concurs. Resume Magnesium 400mg qhs Continue to hold Topiramate 25-50mg qhs. Previous migraine prevention medication trials: Propranolol 20mg tid- ineffective after > 12 wks. Migraine prevention medication contraindications: Would avoid Amitriptyline d/t pt is alone at home w/ very young children. Future considerations: CGRP MaB Also advised pt to start neuromodulation device for both acute and preventive migarine tx. Nerlyleio has recent data showing safety in . Will initiate order. ? Monitor fatigue and cognitive difficulties. Future considerations: sleep study, neuro-psych eval. Will update pt's [place] paperwork when available. ? Medications: New metoclopramide HCl 5 mg PO QID 30 days PRN 120 tabs 0RF nausea or migraine magnesium oxide may hold for loose stools 400 mg PO BEDTIME 30 days 30 tabs 6RF aspirin (Aspirin Childrens) 162 mg PO DAILY Coding Level of Care Code Est Pt Level 4 (60000) Diagnoses Migraine headache with aura G43.109 Z34.90
[2023-08-26 14:19] VITALS: BP 106/72; PULSE 87; O2SAT 96; BMI 19.1
== END 2023-08-26 15:13 | disposition home or self-care (01) ==
PROVIDERS: PCP Internal Medicine; Visit Provider Nurse Practitioner Family
DX: G43.109 Migraine with aura, not intractable, without status migrainosus (principal); Z34.90 Encounter for supervision of normal pregnancy, unspecified, unspecified trimester
CPT/HCPCS: 99214

== ENCOUNTER → 2023-08-26 14:05 | Outpatient (BNVA) | payer OTHER, SELFPAY | PROVIDERS: PCP Internal Medicine; Visit Provider Nurse Practitioner Family | DX: O26.899 Other specified pregnancy related conditions, unspecified trimester (principal); G43.109 Migraine with aura, not intractable, without status migrainosus; Z3A.00 Weeks of gestation of pregnancy not specified | CPT/HCPCS: 99212 ==

== ENCOUNTER 2023-12-26 07:29 | Outpatient (AMB) | payer OTHER, SELFPAY ==
[2023-12-26 07:30] VITALS: BP 112/88; BMI 23.8
--- NOTE | 2023-12-26 07:30 | MHC.OFFVIS ---
Vital Signs 12/26/23 07:30 Height 5 ft 5 in Weight 143 lb BMI 23.8 BP 112/88 Blood Pressure Location Rt brachial Position Sitting Intake Visit Reasons: 3 month f/u Intake Note: Patient presents for follow up. Migraines are not good and patient cant take meds due to complications Allergies Doxycycline Hyclate Allergy (Unknown, Verified 12/26/23 07:35) nausea, vomiting, nausea and vomiting bee venom protein (honey bee) Adverse Reaction (Mild, Verified 12/26/23 07:35) hives Medication List - Last Reconciled 12/26/23 by MARCELINA Chen albuterol sulfate 90 mcg/actuation (ProAir HFA) 1 inh inhalation QID PRN aspirin (Aspirin Childrens) 162 mg PO DAILY magnesium oxide 400 mg PO BEDTIME 30 days metoclopramide HCl 5 mg PO QID PRN 30 days mv-min [id number] 180 mcg-25 mg- 25 mg (Alive Daily Support ) tabs PO norethindrone (contraceptive) 0.35 mg PO DAILY HPI Comments Details: 27-yr-old female presents for f/u visit for migraine. Pt reports she is 34 weeks , which has been complicated by cyst growth. Pt is f/b [facility] and has an appoint tomorrow at [facility]. They will do a MRI. In her previous 2 pregnancies, she reports she had increased headaches during her , as well as eclampsia and preeclampsia. She was is still on ASA 162mg qd. Now f/b Rosario Henry at [facility]. She is having an almost daily migraine. Due to the complications of the , she is scared to take any other medications, even Tylenol. She did try the Nerivio, but did not see much effect. She is now only working 2-3 days per week. She works for [employer], from home, is on a computer all day. Her current FMLA form allows her up to 3 missed days of work per week. Baseline headache characteristics: Aura: Denies. PCP note mentions seeing wavy lines and tingling prior to onset of headache. Headache: 1st s/s is blurry vision, followed by severe throbbing usually right eye/frontal, right occipital/neck pain a/w photophobia, phonophobia, osmophobia, allodynia, N/V, some dizziness, brain fog, activity intolerance, fatigue/tiredness. Postdrome: Residual headache PFSH Medical History (Updated 08/27/23 @ 15:03 by MARCELINA Chen) Persistent headaches Migraine headache with aura Chlamydia infection Screen for sexually transmitted diseases Screening for malignant neoplasm of cervix Encounter for counseling regarding contraception Well woman exam with routine gynecological exam Lump of right breast Mixed anxiety and depressive disorder Rash of face depression Vitamin D deficiency depression Exercise induced bronchospasm Preeclampsia Surgical History H/O eye surgery No pertinent past surgical history Family History Mother Breast cancer, Onset Age: 46 Mental health disorder Paternal Grandmother Diabetes mellitus Breast cancer Maternal Grandfather Arteriosclerotic heart disease (ASHD) Sister Mental health disorder Social History Housing: Apartment Alcohol intake: former Patient Tobacco Use Status: Never used Tobacco e-Cigarette/Vaping Use: Never Used Current occupational status: employed Cognitive needs: No Hearing needs: No Vision needs: No Female Reproductive History Menstrual Age of Menarche: 13 Physical Exam Vital Signs: Last Vital Signs BP 112/88 12/26/23 07:30 BMI result Body Mass Index 23.8 Assessment & Plan Assessment & Plan (1) Migraine headache with aura: Comment: Increased headaches likely r/t pt stopping migraine tx for . Code(s): G43.109 - Migraine with aura, not intractable, without status migrainosus Category: Medical (2) : Code(s): Z34.90 - Encounter for supervision of normal , unspecified, unspecified trimester Category: Medical Plan For overall headache management: Continue to optimize good self-care, including but not limited to maintaining a healthy diet, adequate fluid intake, adequate sleep, and engaging in regular physical activity. For photophobia: Patient may try blue light filtering glasses, green glasses, green light therapy. Track headaches. Pt to notify us and/or her OB w/ any new/worrisome headache symptoms. ? For acute headache treatment: Re-try Nerivio 45 min neurostimulation, may adjunct w/ cold cap, warm foot bath. Discussed that triptans have well-established safety in , more so with Sumatriptan however pt has not tolerated Sumatriptan before. She has tolerated Rizatriptan well, so she may use Rizatriptan sparingly. I would not try her on a new triptan while . Rizatriptan 10mg tab, 1/2 - 1 tab (5-10mg) at onset of headache, may repeat in 2 hours. Max of 2 tabs (200mg) per 24 hours. May adjunct with OTC Tylenol 650mg q 4 hours prn. Metoclopramide 5mg qid prn- for migraine headache and nausea. Stop Fioricet. Stop Zofran ODT 4-8mg prn. Previous acute migraine medication trials: Sumatriptan 100mg - ineffective. Acute migraine medication contraindications: NSAIDs, DHE, ditans, gepant d/t . Future considerations- lidocaine nasal spray.? ? For headache prevention medication: Resume Riboflavin 400mg qam if her OB concurs. Resume Magnesium 400mg qhs Continue to hold Topiramate 25-50mg qhs. Previous migraine prevention medication trials: Propranolol 20mg tid- ineffective after > 12 wks. Migraine prevention medication contraindications: Would avoid Amitriptyline d/t pt is alone at home w/ very young children. Future considerations: CGRP MaB ? ? Monitor fatigue and cognitive difficulties. Future considerations: sleep study, neuro-psych eval. ? FMLA paperwork already completed. Coding Level of Care Code Est Pt Level 4 (10246) Diagnoses Migraine headache with aura G43.109 Z34.90
== END 2023-12-26 08:24 | disposition home or self-care (01) ==
PROVIDERS: PCP Internal Medicine; Visit Provider Nurse Practitioner Family
DX: G43.109 Migraine with aura, not intractable, without status migrainosus (principal); Z34.90 Encounter for supervision of normal pregnancy, unspecified, unspecified trimester
CPT/HCPCS: 99214

== ENCOUNTER → 2023-12-26 07:29 | Outpatient (BNVA) | payer OTHER, SELFPAY | PROVIDERS: PCP Internal Medicine; Visit Provider Nurse Practitioner Family ==

== ENCOUNTER 2024-04-17 08:56 | Outpatient (REF) | payer OTHER, BC, SELFPAY ==
[2024-04-17 11:15] LABS: Alanine Aminotransferase 15 U/L (0-31); Anion Gap 8 (12-20); Aspartate Amino Transferase 21 U/L (5-31); Blood Urea Nitrogen 13 mg/dL (9-16); Calcium 8.8 mg/dL (8.4-10.2); Carbon Dioxide 29 mmol/L (22-29); Chloride 105 mmol/L (96-108); Cholesterol 175 mg/dL (<200); Estimated Glomerular Filt Rate > 60; Glucose Fasting 82 mg/dL (60-99); HDL Cholesterol 47 mg/dL (>40); LDL Cholesterol Calculated 116 mg/dL (<100); Sodium 138 mmol/L (135-145); Triglycerides 61 mg/dL (<150); Vitamin D 25-OH Total 38.6 ng/mL (>30)
== END 2024-04-17 08:57 | disposition home or self-care (01) ==
LOC: HO.HMGCLDS 08:56
PROVIDERS: PCP Internal Medicine; Visit Provider Internal Medicine
DX: E55.9 Vitamin D deficiency, unspecified (principal); Z13.220 Encounter for screening for lipoid disorders; Z13.1 Encounter for screening for diabetes mellitus; R51.9 Headache, unspecified
CPT/HCPCS: 36415; 80048; 80061; 82306; 84450; 84460

== ENCOUNTER 2024-04-19 07:30 | Outpatient (AMB) | payer OTHER, SELFPAY ==
--- NOTE | 2024-04-19 07:30 | A.OFFVIS_ITS ---
Vital Signs 04/19/24 07:31 Height 5 ft 5 in Intake Visit Reasons: Follow up Intake Note: phone [phone] Allergies Doxycycline Hyclate Allergy (Unknown, Verified 04/19/24 07:31) nausea, vomiting, nausea and vomiting bee venom protein (honey bee) Adverse Reaction (Mild, Verified 04/19/24 07:31) hives Medication List - Last Reconciled 04/19/24 by MARCELINA Chen albuterol sulfate 90 mcg/actuation (ProAir HFA) 1 inh inhalation QID PRN aspirin (Aspirin Childrens) 162 mg PO DAILY magnesium oxide 400 mg PO BEDTIME 30 days metoclopramide HCl 5 mg PO QID PRN 30 days mv-min [id number] 180 mcg-25 mg- 25 mg (Alive Daily Support ) tabs PO norethindrone (contraceptive) 0.35 mg PO DAILY HPI Comments Details: 28-yr-old female presents for f/u telephone visit for migraine. Visit conducted via telephone today, as patient was unable to utilize Violeto technology today. Pt reports she is 3 months . Pt reports she had complication- infection related to her placenta manually removed. She is no longer nursing. She and her are hoping to have 1 more child in the near future. She is currently on maternity leave, and is considering not returning to work. She is having 2-3 more severe disabling migraine attacks per week despite trying to minimize her headache triggers. She still has significant photophobia and phonophobia. She never had MRI that we discussed before, as she was . She is taking dual Tylenol/Motrin which seems to help if she catches the migra ine at the 1st sign, but if she does not catch, she'll have a 3 day a headache. She notes she has had a decreased appetite and recent unintended weight loss, which she states she has recently brought up to her PCP. Patient denies usual constipation. Baseline headache characteristics: Aura: Visual/sensory aura of wavy lines and tingling prior to onset of headache. Headache: 1st s/s is blurry vision, followed by severe throbbing usually right eye/frontal, right occipital/neck pain a/w photophobia, phonophobia, osmophobia, allodynia, N/V, some dizziness, brain fog, activity intolerance, fat igue/tiredness. Postdrome: Residual headache PFSH Medical History Persistent headaches Migraine headache with aura Chlamydia infection Screen for sexually transmitted diseases Screening for malignant neoplasm of cervix Encounter for counseling regarding contraception Well woman exam with routine gynecological exam Lump of right breast Mixed anxiety and depressive disorder Rash of face depression Vitamin D deficiency depression Exercise induced bronchospasm Preeclampsia Surgical History H/O eye surgery No pertinent past surgical history Family History Mother Breast cancer, Onset Age: 46 Mental health disorder Paternal Grandmother Diabetes mellitus Breast cancer Maternal Grandfather Arteriosclerotic heart disease (ASHD) Sister Mental health disorder Social History Housing: Apartment Alcohol intake: former Patient Tobacco Use Status: Never used Tobacco e-Cigarette/Vaping Use: Never Used Current occupational status: employed Cognitive needs: No Hearing needs: No Vision needs: No Female Reproductive History Menstrual Age of Menarche: 13 Physical Exam Const General: cooperative and no acute distress Orientation/consciousness: patient oriented x3 Resp Effort & Inspection: normal respiratory effort and able to speak in complete sentences Neuro General: patient oriented x3 Cognition (Neuro): normal cognition Psych Mental Status: mental status grossly normal Affect: normal affect Attitude: cooperative Telehealth Telehealth Telehealth Platform: [facility] Location of provider rendering services: practice address Location of patient: address on file Patient Identification confirmed using: Name, : Yes Telehealth method: voice only Patient verbally consented to treatment: Yes Patient verbally consented to billing insurance company: Yes Patient informed of any privacy concerns related to visit: Yes Minutes spent on Phone/Video with Pt.: 21 Assessment & Plan Assessment & Plan (1) Migraine headache with aura: Comment: Increased headaches likely r/t pt stopping migraine tx for . Code(s): G43.109 - Migraine with aura, not intractable, without status migrainosus Category: Medical (2) Paresthesia: Code(s): R20.2 - Paresthesia of skin Category: Medical (3) Visual aura: Code(s): H53.9 - Unspecified visual disturbance Category: Medical (4) Desire for : Code(s): Z31.9 - Encounter for procreative management, unspecified Category: Medical Plan Patient advised to undergo brain MRI without contrast to assess for underlying intra cranial etiologies for ongoing worsening headache attack and paresthesia. For overall headache management: Continue to optimize good self-care, including but not limited to maintaining a healthy diet, adequate fluid intake, adequate sleep, and engaging in regular physical activity. For photophobia: Patient may try blue light filtering glasses, green glasses, green light therapy. Track headaches. Pt to notify us and/or her OB w/ any new/worrisome headache symptoms. ? For acute headache treatment: Nerivio 45 min neurostimulation, may adjunct w/ cold cap, warm foot bath. Rizatriptan 10mg tab, 1/2 - 1 tab (5-10mg) at onset of headache, may repeat in 2 hours. Max of 2 tabs (200mg) per 24 hours. May adjunct with OTC Tylenol 650mg q 4 hours prn. May resume Zofran ODT 4-8mg prn. Metoclopramide 5mg qid prn- for severe migraine headache and nausea. Previous acute migraine medication trials: Sumatriptan 100mg - ineffective. Acute migraine medication contraindications: NSAIDs, DHE, ditans, gepant d/t . Future considerations- lidocaine nasal spray.? ? For migraine headache prevention medication: Resume Riboflavin 400mg qam.. Continue Magnesium 400mg qhs Trial Rimegepant ODT (Nurtec ODT) 75mg, 1 tab every other day. Max of 1 tabs (75mg) per 24 hours. Potential adverse effects, include but are not limited to fatigue, nausea, dry mouth, constipation. Advised that if patient were to become , she can immediately stop Rimegepant (half-life is approximately 11 hours). Previous migraine prevention medication trials: Propranolol 20mg tid- ineffective after > 12 wks. Topiramate 25-50 mg q.h.s.-ineffective Migraine prevention medication contraindications: Topiramate and Depakote-due to desire for pregnancies and these medications are known teratogenic agents. CGRP mabs (Aimovig/Emgality/Ajovy/Vyepti)- as they have not been studied in and have an extended half-life of at least 28 days. Qulipta, as talia ent already experiencing anorexia and weight loss. Future considerations: CGRP MaB ? ? Monitor fatigue and cognitive difficulties. Future considerations: sleep study, neuro-psych eval. ? Will follow-up upon review of above and patient to follow-up in clinic in 3-6 months or sooner prn. Orders: Orders MR head/brain wo con 04/19/24 H53.9 - Unspecified visual disturbance, R20.2 - Paresthesia of skin, R51.9 - Headache, unspecified Medications: New rimegepant ([facility]) 75 mg PO Q OTHER DAY 30 days 16 tabs 6RF G43.109 - Migraine with aura, not intractable, without status migrainosus Coding Level of Care Code Tele Est Pt Level 4 (08940) Diagnoses Migraine headache with aura G43.109 Paresthesia R20.2 Visual aura H53.9 Desire for Z31.9
== END 2024-04-19 15:29 | disposition home or self-care (01) ==
PROVIDERS: PCP Internal Medicine; Visit Provider Nurse Practitioner Family
DX: G43.109 Migraine with aura, not intractable, without status migrainosus (principal); R20.2 Paresthesia of skin; H53.9 Unspecified visual disturbance; Z31.9 Encounter for procreative management, unspecified
CPT/HCPCS: 98968

== ENCOUNTER → 2024-04-19 07:30 | Outpatient (BNVA) | payer OTHER, SELFPAY | PROVIDERS: PCP Internal Medicine; Visit Provider Nurse Practitioner Family ==

== ENCOUNTER 2024-05-01 11:45 | Outpatient (AMB) | payer OTHER, SELFPAY ==
[2024-05-01 12:04] VITALS: BP 110/80; PULSE 82; TEMP 36.6; O2SAT 97
--- NOTE | 2024-05-01 12:04 | MHC.PC.OV ---
Vital Signs 05/01/24 12:04 Height 5 ft 5 in Weight 120 lb BMI 20.0 BP 110/80 Blood Pressure Location Rt brachial Position Sitting Pulse 82 Pulse Source Pulse Oximeter Temp 97.9 F Temp Source Oral Pulse Oximetry (%) 97 Intake Visit Reasons: PE/overdue Intake Note: pt is here for PE Neuropsychologist Required: No Accompanied by: Self / Same As Patient Allergies Doxycycline Hyclate Allergy (Unknown, Verified 05/01/24 12:28) nausea, vomiting, nausea and vomiting bee venom protein (honey bee) Adverse Reaction (Mild, Verified 05/01/24 12:28) hives Medication List - Last Reconciled 05/06/24 by Marilu Casper MD albuterol sulfate 90 mcg/actuation (ProAir HFA) 1 inh inhalation QID PRN magnesium oxide 400 mg PO BEDTIME 30 days metoclopramide HCl 5 mg PO QID PRN 30 days rimegepant (Nurtec ODT) 75 mg PO Q OTHER DAY 30 days sertraline mg PO DAILY Tobacco use date assessed: 05/01/24 Dental Screening Dental Screen Date: 05/01/24 Did you have a dental visit in the last 12 months?: Yes Did you have a dental problem in the last 6 months where you did not have access to dental care?: No Was dental information given to patient?: Patient has dentist HPI PE/overdue HPI Details - The patient is a 28-year-old female presenting today for her physical exam. -complains of feeling tired most of the time, that have persisted despite normal past blood work evaluations. - Reports a pertinent history of anemia during , which she associates with fatigue. - She indicates a lack of appetite, but tries to eat a healthy diet. - The patient is experiencing significant anxiety, partially attributed to concerns over her children's welfare, managed with sertraline 100 mg. - history of migraine, managed by a neurologist, currently on Nurtec ODT and magnesium oxide supplement - The patient is a mother to three children,. The oldest child is in preschool. 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 - Initially very active, previously engaging in hiking, now experiencing reduced physical activity. -has been started on sertraline by her OBGYN at [facility] for depression [facility] Medical History (Updated 05/06/24 @ 18:19 by Marilu Casper MD) depression Migraine headache with aura Chlamydia infection Lump of right breast Mixed anxiety and depressive disorder Rash of face Vitamin D deficiency depression Exercise induced bronchospasm Preeclampsia Surgical History H/O eye surgery No pertinent past surgical history Family History Mother Breast cancer, Onset Age: 46 Mental health disorder Paternal Grandmother Diabetes mellitus Breast cancer Maternal Grandfather Arteriosclerotic heart disease (ASHD) Sister Mental health disorder Social History Housing: Apartment Alcohol intake: former Patient Tobacco Use Status: Never used Tobacco e-Cigarette/Vaping Use: Never Used service: No Current occupational status: employed Cognitive needs: No Hearing needs: No Vision needs: No Female Reproductive History Menstrual Age of Menarche: 13 Questionnaire PHQ-9 Over the last 2 weeks, how often have you been bothered by any of the following problems? 1. Little interest or pleasure in doing things: more than half the days 2. Feeling down, depressed, or hopeless: several days 3. Trouble falling or staying asleep, or sleeping too much: nearly every day 4. Feeling tired or having little energy: nearly every day 5. Poor appetite or overeating: more than half the days 6. Feeling bad about yourself - or that you are a failure or have let yourself or your family down: several days 7. Trouble concentrating on things, such as reading the newspaper or watching television: not at all 8. Moving or speaking so slowly that other people could have noticed. Or the opposite - being so fidgety or restless that you have been moving around a lot more than usual: not at all 9. Thoughts that you would be better off or of hurting yourself in some way: not at all Total score: 12 Depression Screening Interpretation: Positive (Currently followed by [facility] OB for depression) Depression Screening Follow-up: Existing condition, In treatment and Community Mental Health Worker F/U Depression Screening Done: Yes 59775 - PHQ-9 Billing: Yes Source: Developed by Drs. Alexis Marina, Lupe Muse, Jaren Shetty and colleagues, with an educational karen from [employer]. Thrive Questionnaire Date Thrive assessed: 05/01/24 I am a: Patient What is your living situation today?: I have a steady place to live Within the past 12 months, did the food you bought not last and you didn't have the money to get more?: Never true Within the past 12 months, did you worry whether your food would run out before you got money to buy more?: Never true Do you have trouble paying for medicines?: No Do you have trouble getting transportation to medical appointments?: No Do you have trouble paying your heating and electricity bill?: No Do you have trouble taking care of your child, family member or friend?: No Do you have trouble with day-to-day activities such as bathing, preparing meals, shopping, managing finances, etc.?: No Are you currently unemployed and looking for a job?: No Are you interested in more education?: No Please select the resources that you would like help with: None Currently or been in a relationship where the following occur: No concerns reported THRIVE Score: 0 AUDIT C Alcohol Use Questionnaire (AUDIT-C) 1. How often do you have a drink containing alcohol?: Monthly or less 2. How many drinks containing alcohol do you have on a typical day when you are drinking?: 1 or 2 3. How often do you have six or more drinks on one occasion?: Never Total Score: 1 Score Reviewed/Action Taken: Yes CONNIE-7 AMB Questionnaire CONNIE-7 Date CONNIE - 7 assessed: 05/01/24 Feeling nervous, anxious, or on edge: 3 = Nearly every day Not being able to stop or control worryin = More than half the days Worrying too much about different things: 2 = More than half the days Trouble relaxin = Several days Being so restless that it is hard to sit still: 1 = Several days Becoming easily annoyed or irritable: 1 = Several days Feeling afraid as if something awful might happen: 2 = More than half the days Total CONNIE-7 score (0-4 normal; 5-9 mild; 10-14 moderate; 15-21 severe): 12 Source: Developed by Lupe JarrellW. Micha, Jaren Shetty and colleagues, with an educational karen from [employer]. CONNIE-7 Assessment Billing CONNIE-7 Assessment Tool: CONNIE-7 Assessment 14187 Review of Systems Const Denies body aches, Denies daytime sleepiness, Denies fever(s) and Denies malaise Eyes Reports no additional complaints ENT Reports no additional complaints Card Denies chest pain, Denies syncope, Denies rapid heart rate, Denies irregular heart rhythm and Denies dyspnea Resp Denies cough and Denies dyspnea GI Denies abdominal pain, Denies change in bowel habits and Denies heartburn Reports no additional complaints Musc Reports no additional complaints Skin/Breast Denies breast pain, Denies breast mass and Denies rash Neuro Reports as per HPI and Denies syncope Psych Reports as per HPI Endo Reports no additional complaints Ryan/Lymph Reports no additional complaints Aller/Immun Denies seasonal rhinorrhea Physical exam (Primary Care) Vital Signs: Last Vital Signs Temp 97.9 F 05/01/24 12:04 Pulse 82 05/01/24 12:04 BP 110/80 05/01/24 12:04 Pulse Ox 97 05/01/24 12:04 BMI result Body Mass Index 20.0 Tobacco/Smoking Status: Tobacco use Status Tobacco use date assessed 05/01/24 05/01/24 12:06 Patient Tobacco Use Status Never used Tobacco 05/01/24 12:06 e-Cigarette/Vaping Use Never Used 05/01/24 12:06 PHQ-9: PHQ-9 Score PHQ-9: Total score 12 05/06/24 18:10 Depression Screening Interpretation: Positive (Currently followed by [facility] for depression) Depression Screening Follow-up: Existing condition, In treatment and Community Mental Health Worker F/U Thrive Assessment: Date of Thrive Assessment Date Thrive assessed 05/01/24 05/01/24 12:06 Currently or been in a relationship where the following occur: No concerns reported Const General: comfortable, no acute distress, alert and Physically active Nutritional Appearance: average body habitus Orientation/consciousness: patient oriented x3 HENMT Face and sinus: Yes face symmetric Mouth: Normal oral and palatal mucosa present and moist mucous membranes Eyes General: appearance normal, both eyes and all related structures Neck Neck: Yes full ROM, Yes no lymphadenopathy and Yes supple Thyroid: Thyroid normal Resp Effort & Inspection: normal respiratory effort and able to speak in complete sentences Auscultation: clear to auscultation bilaterally Cardio Rate: regular rate Rhythm: regular rhythm Heart sounds: S1 normal heart sound present and S2 normal heart sound present GI Palpation (GI): Soft to palpation, nontender, no hepatosplenomegaly and no masses Auscultation: normal bowel sounds Other: Goes to [facility] for her routine Pap and pelvic exam Back/Spine/Pelvis Back: No back tenderness Skin General skin exam: no rashes or lesions noted Neuro General: patient oriented x3, gait normal, moves all extremities, Normal light touch and pain sensation, no focal motor deficits and CN's II-XI intact bilaterally Extrem General: Yes normal to inspection, Yes full ROM, Yes no joint enlargement, Yes no pedal edema and Yes normal gait Psych Appearance: grossly normal and well kempt Mental Status: mental status grossly normal Speech and movement: Normal speech and movement present Affect: normal affect Thought process: Normal thought process present Thought content: Normal thought content present Results Reviewed Results Reviewed: aurelio: LópezCarie Age/Sex: 28/F : 1995 Unit#: [id number] Attend Dr: Marilu Casper MD Re04/17/24 Status: DEP REF Location: [facility] Disch: SPEC : [id number] JIE: 04/17/24 STATUS: COMP REQ : [id number] RECD: 04/17/[address]: Marilu Casper MD COMP: 04/17/24 ENTERED: 04/17/24 [facility] DR: ORDERED: Met Prof Fast, AST, ALT, Lipid Panel, Vitamin D 25-OH Test Result Flag Reference Sodium 138 135-145 mmol/L Potassium 4.0 3.3-5.1 mmol/L CL 105 96-108 mmol/L CO2 29 22-29 mmol/L Gap 8 L 12-20 BUN 13 9-16 mg/dL Creat 0.74 0.5-1.4 mg/dL eGFR > 60 Chronic Kidney Disease: Estimated GFR < 60 mL/min/1.73m2 Severe Kidney Disease: Estimated GFR < 15 mL/min/1.73m2 FBS 82 60-99 mg/dL CA 8.8 # 8.4-10.2 mg/dL AST (GOT) 21 5-31 U/L ALT (GPT) 15 0-31 U/L Triglyceride 61 <150 mg/dL Desirable Triglyceride: less than 150 mg/dL Borderline High Triglyceride 150-199 mg/dL High Triglyceride: 200-499 mg/dL Very High Triglyceride: greater than or equal to 5OO mg/dL Cholesterol 175 <200 mg/dL Desirable Cholesterol: less than 200 mg/dL Borderline High Cholesterol: 200-239 mg/dL High Cholesterol: greater than 239 mg/dL LDL Calculated 116 H <100 mg/dL Desirable LDL: less than 100 mg/dL Near Optimal/Above Optimal LDL: 110-129 mg/dL Borderline High LDL: 130-159 mg/dL High LDL: 160-189 mg/dL Very High LDL: greater than or equal to 190 mg/dL HDL 47 >40 mg/dL Desirable HDL: greater than 40 mg/dL Note: This HDL assay may give artificially low results in patients with liver disease. Vit D 25-OH Tot 38.6 >30 ng/mL Health Based Reference Values* < 20 ng/mL Deficient 20-30 ng/mL Insufficient > 30 ng/mL Sufficient Coding Level of Care Code Est Pt Prev Care 18-39y(20606) Diagnoses Annual visit for general adult medical examination with abnormal findings Z. Mixed anxiety and depressive disorder F41.8 Migraine headache with aura G43.109 Fatigue R53.83 Additional Codes CONNIE-7 Assessment Billing - CONNIE-7 Assessment Tool: CONNIE-7 Assessment 30691 ([id number]) PHQ-9 - 02526 - PHQ-9 Billing: Yes ([id number]) Assessment & Plan Assessment & Plan (1) Annual visit for general adult medical examination with abnormal findings: Code(s): Z00.01 - Encounter for general adult medical examination with abnormal findings Plan: Will check appropriate labs. Continue regular dental visit every 6 months and regular eye exams, at least every 2 years. Take adequate calcium in diet and vitamin-D 3 at 2000 IU per cap once a day, in addition to weight-bearing exercises to help maintain good muscle tone and weight control. Instructed to do self-breast exam, and recommended to get yearly mammogram, starting at age 40. Goes to [facility] for her routine Pap and pelvic exam. Up-to-date with her Tdap , and advised to get her yearly flu vaccine and COVID booster. (2) Mixed anxiety and depressive disorder: Code(s): F41.8 - Other specified anxiety disorders Category: Medical Plan: Currently followed by [facility], on sertraline (3) Migraine headache with aura: Comment: Increased headaches likely r/t pt stopping migraine tx for . Code(s): G43.109 - Migraine with aura, not intractable, without status migrainosus Category: Medical Plan: Followed by Neurology [facility] [place] currently on Mag oxide supplement and Nurtec ODT (4) Fatigue: Code(s): R53.83 - Other fatigue Category: Medical Plan: Will check Lyme titer, complete blood count, iron profile TSH with free T4 and vitamin B12 and folic acid level. Orders: Orders Complete Blood Count Auto Diff 05/01/24 F41.8 - Other specified anxiety disorders, G43.109 - Migraine with aura, not intractable, without status migrainosus, R53.83 - Other fatigue IRON PROFILE 05/01/24 F41.8 - Other specified anxiety disorders, G43.109 - Migraine with aura, not intractable, without status migrainosus, R53.83 - Other fatigue TSH reflex Free T4 05/01/24 F41.8 - Other specified anxiety disorders, G43.109 - Migraine with aura, not intractable, without status migrainosus, R53.83 - Other fatigue Vitamin B12 and Folate 05/01/24 F41.8 - Other specified anxiety disorders, G43.109 - Migraine with aura, not intractable, without status migrainosus, R53.83 - Other fatigue Lyme IgG/IgM w/reflex to WB 05/01/24 F41.8 - Other specified anxiety disorders, G43.109 - Migraine with aura, not intractable, without status migrainosus, R53.83 - Other fatigue
== END 2024-05-01 12:47 | disposition home or self-care (01) ==
PROVIDERS: PCP Internal Medicine; Visit Provider Internal Medicine
DX: Z00.01 Encounter for general adult medical examination with abnormal findings (principal); F41.8 Other specified anxiety disorders; G43.109 Migraine with aura, not intractable, without status migrainosus; R53.83 Other fatigue

== ENCOUNTER → 2024-05-01 11:45 | Outpatient (BNVA) | payer OTHER, BC, SELFPAY | LOC: CF 13:09 | PROVIDERS: PCP Internal Medicine; Visit Provider Internal Medicine | DX: Z00.01 Encounter for general adult medical examination with abnormal findings (principal); F41.8 Other specified anxiety disorders; G43.109 Migraine with aura, not intractable, without status migrainosus; R53.83 Other fatigue | CPT/HCPCS: 96127 ==

== ENCOUNTER 2024-05-24 16:36 | Outpatient (REF) | payer OTHER, BC, SELFPAY | END 2024-05-24 16:37 | disposition home or self-care (01) | LOC: HO.MRI 16:36 | PROVIDERS: PCP Internal Medicine; Visit Provider Nurse Practitioner Family | DX: Z13.89 Encounter for screening for other disorder (principal) ==

== ENCOUNTER 2024-06-04 08:52 | Outpatient (REF) | payer SELFPAY ==
[2024-06-04 10:32] LABS: MANUAL DIFF FLAG NO
[2024-06-04 10:35] LABS: Basophils Absolute Auto 0.1 X10*3/uL (0.0-0.2); Basophils Percent Auto 0.7 % (0-2); Eosinophils Absolute Auto 0.3 X10*3/uL (0.0-0.4); Eosinophils Percent Auto 4.8 % (0-4); Hematocrit 37.5 % (37.0-47.0); Hemoglobin 12.3 g/dl (12.0-16.0); Imm Gran Abs Auto 0.01 X10*3/uL (0.00-0.03); Imm Gran Pct Auto 0.1 % (0.0-0.4); Lymphocytes Absolute Auto 1.7 X10*3/uL (1.2-4.9); Lymphocytes Percent Auto 25.3 % (20-40); Mean Corpuscular HGB Conc 32.8 g/dl (31.0-35.0); Mean Corpuscular Hemoglobin 28.3 pg (27.0-33.0); Mean Corpuscular Volume 86.4 fL (80.0-98.0); Mean Platelet Volume 10.9 fL (9.4-12.3); Monocytes Absolute Auto 0.4 X10*3/uL (0.1-1.2); Monocytes Percent Auto 6.3 % (2-11); Neutrophils Absolute Auto 4.3 x10*3/uL (2.0-8.3); Neutrophils Percent Auto 62.8 % (45-73); Platelet Count 281 X10*3/uL (160-400); Red Blood Count 4.34 X10*6/uL (4.20-5.50); Red Cell Distribution Width 15.4 % (11.0-16.0); White Blood Count 6.9 X10*3/uL (4.8-10.8)
[2024-06-04 11:04] LABS: Iron 82 mcg/dL (30-160); Percent Iron Saturation 31 % (15-50); Total Iron Binding Capacity 262 mcg/dL (228-428); Unsaturated Iron Binding 180 ug/dL
[2024-06-04 11:17] LABS: TSH reflex Free T4 0.96 uIU/mL (0.32-4.0)
[2024-06-04 11:29] LABS: Vitamin B12 745 pg/mL (200-900)
[2024-06-05 06:44] LABS: Lyme Abs Screen <0.90 index
== END 2024-06-04 08:53 | disposition home or self-care (01) ==
LOC: HO.HMGCLDS 08:52
PROVIDERS: PCP Internal Medicine; Visit Provider Internal Medicine
DX: F41.8 Other specified anxiety disorders (principal); G43.109 Migraine with aura, not intractable, without status migrainosus; R53.83 Other fatigue
CPT/HCPCS: 36415; 82607; 82746; 83540; 84443; 85025; 86617; 86618

== ENCOUNTER → 2024-06-11 17:34 | Outpatient (BNV) | payer BC, SELFPAY | PROVIDERS: PCP Internal Medicine; Visit Provider Radiology Diagnostic Radiology | DX: R51.9 Headache, unspecified (principal) | CPT/HCPCS: 70551 ==

== ENCOUNTER 2024-06-11 17:37 | Outpatient (REF) | payer BC, SELFPAY ==
--- NOTE | ~2024-06-11 | MR_ITS ---
EXAMINATION: MR BRAIN WITHOUT IV CONTRAST HISTORY: R51.9 - Headache, unspecified TECHNIQUE: Sagittal T1, and axial T1, FLAIR, T2, gradient echo, and diffusion weighted MR images of the brain were obtained. COMPARISON: None FINDINGS: The brain parenchyma is unremarkable, demonstrating normal richardson/white differentiation. No foci of abnormal signal intensity are identified. The ventricular system is normal in size and configuration. There is no mass effect or midline shift. No intra or extra-axial fluid collections are identified. There are no foci of restricted diffusion. Normal vascular flow voids are noted in the basilar and carotid arteries. There is mild mucosal thickening in the bilateral maxillary sinuses. MR/MR head/brain wo con IMPRESSION: Unremarkable MRI of the brain without contrast. Electronically signed by: Alexis Haskins MD 06/12/2024 07:27 AM EDT
== END 2024-06-11 17:38 | disposition home or self-care (01) ==
LOC: HO.MRI 17:37
PROVIDERS: PCP Internal Medicine; Visit Provider Nurse Practitioner Family
DX: R51.9 Headache, unspecified (principal); R20.2 Paresthesia of skin; H53.9 Unspecified visual disturbance
CPT/HCPCS: 70551

== ENCOUNTER 2024-09-11 08:50 | Outpatient (REF) | payer BC, SELFPAY ==
[2024-09-11 10:31] LABS: UPreg QC Valid YES; Urine Pregnancy POSITIVE (NEGATIVE)
== END 2024-09-11 08:51 | disposition home or self-care (01) ==
LOC: HO.HMGCLDS 08:50
PROVIDERS: PCP Internal Medicine; Visit Provider Internal Medicine
DX: N91.2 Amenorrhea, unspecified (principal); L03.012 Cellulitis of left finger
CPT/HCPCS: 10060; 81025

== ENCOUNTER 2024-09-11 11:29 | Outpatient (AMB) | payer BC, SELFPAY ==
--- NOTE | 2024-09-11 11:31 | AM.OFFWIN_ITS ---
Intake Vital Signs 09/11/24 11:32 Height 5 ft 5 in Weight 115 lb BMI 19.1 BP 120/76 Blood Pressure Location Lt brachial Position Sitting Pulse 102 H Pulse Source Pulse Oximeter Temp 97.8 F Temp Source Oral Pulse Oximetry (%) 98 Oxygen Delivery Method Room Air Intake Visit Reasons: EP infection in finger? Intake Note: Pt presents to the office today for c/o an infected left ring finger. Pt states she did pull a hangnail. Pt also states she is . Patient Tobacco Use Status: Never used Tobacco Allergies Doxycycline Hyclate Allergy (Unknown, Verified 09/11/24 11:35) nausea, vomiting, nausea and vomiting bee venom protein (honey bee) Adverse Reaction (Mild, Verified 09/11/24 11:35) hives HPI HPI Comments History of Present Illness Details History - The patient is a 28-year-old female pr esenting with paronychia for a few days. - The patient attempted to drain the inf ection at home without success, resulting in increased tenderness and purulent discharge. - The condition has persisted despite ho me remedies, including soaking in salt water. - The patient is currently , lian roximately five weeks gestation. Physical Exam General: Cooperative, healthy appearing, comfortable, no acute distress and well developed Orientation: Patient oriented x3 Limitations: No limitations Head: Normal to inspection Ears: Hearing grossly normal bilaterally Nose: Normal External nose present Face and sinus: Normal facial exam Mouth: normal, moist oral mucosa Eyes: Appearance normal, both eyes and all related structures Neck: Normal visual inspection and Yes full ROM Respiratory: Normal respiratory effort and able to speak in complete sentences. Skin: as below Neuro: Patient oriented x3 Extremities: Moving all extremities normally, TTP with erythema and fluctuance on 4th digit of left hand base of nailbed. [facility] Medical History (Updated 09/11/24 @ 12:02 by Laya Ibrahim PA-C) depression Migraine headache with aura Chlamydia infection Lump of right breast Mixed anxiety and depressive disorder Rash of face Vitamin D deficiency depression Exercise induced bronchospasm Preeclampsia Surgical History H/O eye surgery No pertinent past surgical history Family History Mother Breast cancer, Onset Age: 46 Mental health disorder Paternal Grandmother Diabetes mellitus Breast cancer Maternal Grandfather Arteriosclerotic heart disease (ASHD) Sister Mental health disorder Social History Housing: Apartment Alcohol intake: former Patient Tobacco Use Status: Never used Tobacco e-Cigarette/Vaping Use: Never Used service: No Current occupational status: employed Cognitive needs: No Hearing needs: No Vision needs: No Female Reproductive History Menstrual Age of Menarche: 13 Review of Systems Const All systems reviewed & are unremarkable except as noted in HPI and below Physical Exam Vital Signs: Last Vital Signs Temp 97.8 F 09/11/24 11:32 Pulse 102 H 09/11/24 11:32 BP 120/76 09/11/24 11:32 Pulse Ox 98 09/11/24 11:32 Oxygen Delivery Method Room Air 09/11/24 11:32 BMI result Body Mass Index 19.1 Office Procedures I&D Drain Details: Prepped skin with betadine, using #11 scalpel, made small incision at the base of nail bed with blood drainage only. Cleaned with betadine, applied bacitracin and bandaid. 81451-Rwrztzst of Skin Abscess, simple All charges added?: Procedure code (CPT) selection complete Assessment & Plan Assessment & Plan (1) Paronychia of finger of left hand: Code(s): L03.012 - Cellulitis of left finger Plan: Patient was informed and verbally consented to the use of an ambient scribe for clinic note documentation during this visit 1. Paronychia - Incision and drainage was performed with only blood draining. - The use of antibiotics was considered necessary due to the infection's persistence and inability to drain anything other than blood. - Keflex RX'd 5 days Medications: New cephalexin 500 mg PO Q6H 5 days 20 caps 0RF Coding Level of Care Code Est Pt Level 3 (68941) Diagnoses Paronychia of finger of left hand L03.012 CPT Codes I&D Drain - Drain 1: 43356-Qpowuign of Skin Abscess, simple ([id number])
[2024-09-11 11:32] VITALS: BP 120/76; PULSE 102; TEMP 36.6; O2SAT 98; BMI 19.1
== END 2024-09-11 12:17 | disposition home or self-care (01) ==
PROVIDERS: PCP Internal Medicine; Visit Provider Physician Assistant
DX: L03.012 Cellulitis of left finger (principal)

== ENCOUNTER 2024-09-27 12:45 | Outpatient (AMB) | payer BC, SELFPAY ==
--- NOTE | 2024-09-27 12:47 | A.OFFPC_ITS ---
Intake Visit Reasons: poison maria ines Intake Note: Old lady here today for follow-up after being seen and treated the walk-in for contact dermatitis likely poison maria ines. Patient states that she was with [place] and developed a rash on her right ankle which started spreading up her both her legs and now has 1 vesicular lesion on her right forearm. She has been applying triamcinolone 0.1% cream which affords no relief, has also applied calamine lotion, and taking Zyrtec which has not afford any improvement in the itching or halted the spread of the rash. The rash on her right ankle and the back of her left thigh has coalesced and is hurting. She is currently 6 weeks She was previously seen at the walk-in clinic for drainage of a paronychia and placed on cephalexin 500 mg to be taken every 6 hours for 5 days. Patient only took 3 capsules with healing of her paronychia. Denies any side effects from taking the medication and still has a lot left on her prescription. Allergies Doxycycline Hyclate Allergy (Unknown, Verified 09/27/24 13:07) nausea, vomiting, nausea and vomiting bee venom protein (honey bee) Adverse Reaction (Mild, Verified 09/27/24 13:07) hives Medication List - Last Reconciled 09/27/24 by Marilu Casper MD albuterol sulfate 90 mcg/actuation (ProAir HFA) 1 inh inhalation QID PRN cephalexin 500 mg PO Q6H no.167-folic acid-dha 400 mcg- 25 mg (One-A-Day ) tabs PO triamcinolone acetonide 0.1% appl topical BID Tobacco use date assessed: 09/27/24 Dental Screening Dental Screen Date: 05/01/24 HPI poison maria ines HPI Details 28 year olld lady here today for follow- up after being seen and treated at the walk-in for contact dermatitis, likely poison maria ines. Patient states that she developed a rash on her right ankle after a [place], which started spreading up both her legs, and now has 1 vesicular lesion on her right forearm. She has been applying triamcinolone 0.1% cream which affords no relief, has also applied calamine lotion, and taking Zyrtec which has not afford any improvement in the itching or halted the spread of the rash. The rash on her right ankle and the back of her left thigh has coalesced and is hurting. She is currently 6 weeks She was previously seen at the walk-in clinic for drainage of a paronychia and placed on cephalexin 500 mg to be taken every 6 hours for 5 days. Patient only took 3 capsules with healing of her paronychia. Denies any side effects from taking the medication and still has a lot left on her prescription. [facility] Medical History depression Migraine headache with aura Chlamydia infection Lump of right breast Mixed anxiety and depressive disorder Rash of face Vitamin D deficiency depression Exercise induced bronchospasm Preeclampsia Surgical History H/O eye surgery No pertinent past surgical history Family History Mother Breast cancer, Onset Age: 46 Mental health disorder Paternal Grandmother Diabetes mellitus Breast cancer Maternal Grandfather Arteriosclerotic heart disease (ASHD) Sister Mental health disorder Social History Housing: Apartment Alcohol intake: former Patient Tobacco Use Status: Never used Tobacco e-Cigarette/Vaping Use: Never Used service: No Current occupational status: employed Cognitive needs: No Hearing needs: No Vision needs: No Female Reproductive History Menstrual Age of Menarche: 13 Questionnaire Thrive Questionnaire Date Thrive assessed: 05/01/24 CONNIE-7 AMB Questionnaire CONNIE-7 Date CONNIE - 7 assessed: 05/01/24 Source: Developed by Drs. Alexis Marina, Lupe Muse, Jaren Shetty and colleagues, with an educational karen from [employer]. Review of Systems Const All systems reviewed & are unremarkable except as noted in HPI and below ENT Reports no additional complaints Card Reports no additional complaints and Denies dyspnea Resp Denies cough, Denies dyspnea and Denies wheezing GI Reports no additional complaints Aller/Immun Denies wheezing Physical exam (Primary Care) Tobacco/Smoking Status: Tobacco use Status Tobacco use date assessed 09/27/24 09/27/24 12:47 Patient Tobacco Use Status Never used Tobacco 09/27/24 12:47 e-Cigarette/Vaping Use Never Used 09/27/24 12:47 Thrive Assessment: Date of Thrive Assessment Date Thrive assessed 05/01/24 09/27/24 12:47 Const Other: Alert oriented x3, no acute distress noted ambulatory normal gait Orientation/consciousness: patient oriented x3 Neck Neck: Yes full ROM, Yes no lymphadenopathy and Yes supple Resp Auscultation: clear to auscultation bilaterally Cardio Other: S1-S2 present regular rate and rhythm Skin Other: Erythematous slightly swollen patch on lateral aspect of right ankle and on posterior aspect of left thigh, with linear erythematous vesicular lesions on both lower extremities and vesicle scattered on both lower extremities and on right forearm Neuro General: patient oriented x3, gait normal, moves all extremities and no focal motor deficits Coding Level of Care Code Est Pt Level 4 (81388) Diagnoses Acute irritant contact dermatitis L24.9 Cellulitis of right ankle L03.115 Assessment & Plan Assessment & Plan (1) Acute irritant contact dermatitis: Code(s): L24.9 - Irritant contact dermatitis, unspecified cause Category: Medical Plan: Continue application of triamcinolone 0.1% cream to affected lesions, advised to apply Benadryl spray to affected areas that are itchy as needed may try a mixture of water and taking soda , or zinc oxide paste applied to affected areas to help dry lesions. Patient does not want to take any oral prednisone she is 6 weeks and has had 2 miscarriages in the past (2) Cellulitis of right ankle: Code(s): L03.115 - Cellulitis of right lower limb Category: Medical Plan: Still has cephalexin 500 mg capsules left over from her previous prescription, advised to take 1 capsule every 12 hours for 7 days. Return to clinic if after a week no improvement of symptoms
== END 2024-09-27 13:41 | disposition home or self-care (01) ==
LOC: HO.HMCC 12:45
PROVIDERS: PCP Internal Medicine; Visit Provider Internal Medicine
DX: L24.9 Irritant contact dermatitis, unspecified cause (principal); L03.115 Cellulitis of right lower limb

== ENCOUNTER 2024-10-04 09:07 | Outpatient (AMB) | payer BC, SELFPAY ==
[2024-10-04 09:23] VITALS: BP 108/76; PULSE 92; TEMP 36.9; O2SAT 98; BMI 19.5
--- NOTE | 2024-10-04 09:23 | MHC.OFFWIV ---
Intake Vital Signs 10/04/24 09:23 Height 5 ft 5 in Weight 117 lb 2 oz BMI 19.5 BP 108/76 Blood Pressure Location Lt brachial Position Sitting Pulse 92 Pulse Source Pulse Oximeter Temp 98.4 F Temp Source Oral Pulse Oximetry (%) 98 Oxygen Delivery Method Room Air Intake Visit Reasons: EP Poison Erinn on legs Intake Note: Patient presents with poison erinn times 3 weeks still spreading bilateral legs Patient Tobacco Use Status: Never used Tobacco Allergies Doxycycline Hyclate Allergy (Unknown, Verified 09/27/24 13:07) nausea, vomiting, nausea and vomiting bee venom protein (honey bee) Adverse Reaction (Mild, Verified 09/27/24 13:07) hives HPI HPI Comments History of Present Illness Details Patient is a 28yo F who presents for poison erinn rash without improvment She is currently 7 weeks Ongoing x 3 weeks Started on R ankle and spread She said she has had poison erinn in past but not this bad; only located on legs Initially went to and got a steroid cream without relief Then on 09/27 saw PCP who gave triamcinolone ointment and Keflex due to R ankle redness/swelling and concern infection Has been using both with some relief She has also been using oatmeal bath, tecnu, benadryl spray calamine lotion She said linger pain/itching She said the only thing helping is scratching it and using tecnu and feels like that helps She has not taken actual oral benadryl due to her kids at home Uses zyrtec in the am without relief No fever or chills PFSH Medical History depression Migraine headache with aura Chlamydia infection Lump of right breast Mixed anxiety and depressive disorder Rash of face Vitamin D deficiency depression Exercise induced bronchospasm Preeclampsia Surgical History H/O eye surgery No pertinent past surgical history Family History Mother Breast cancer, Onset Age: 46 Mental health disorder Paternal Grandmother Diabetes mellitus Breast cancer Maternal Grandfather Arteriosclerotic heart disease (ASHD) Sister Mental health disorder Social History Housing: Apartment Alcohol intake: former Patient Tobacco Use Status: Never used Tobacco e-Cigarette/Vaping Use: Never Used service: No Current occupational status: employed Cognitive needs: No Hearing needs: No Vision needs: No Female Reproductive History Menstrual Age of Menarche: 13 Review of Systems Const Denies chills, Denies fatigue and Denies fever(s) Reports other (7 weeks ) Musc Denies myalgias, Denies deformity and Denies joint swelling Skin/Breast Reports pruritus, Reports erythema, Reports rash, Reports skin pain, Reports sores and Reports wounds Endo Denies fatigue Physical Exam Vital Signs: Last Vital Signs Temp 98.4 F 10/04/24 09:23 Pulse 92 10/04/24 09:23 BP 108/76 10/04/24 09:23 Pulse Ox 98 10/04/24 09:23 Oxygen Delivery Method Room Air 10/04/24 09:23 BMI result Body Mass Index 19.5 General: Non-toxic, NAD. Speaking full sentences. Skin: Warm dry throughout + excoriations and disperse scabbed and open macular lesions to bilateral lower extremities. Majority of lesions to R lateral ankle, L anterior olson and bilateral posterior thighs. She has some linear dried lesions without drainage but multiple open lesions with + excoriations. No active bleeding or discharge. No surrounding erythema or significant edema Eye: EOMI MSK: Full ROM extremities. Neurology: Alert. No aphasia or facial droop. Gait without abnormality Psych: Good mood and affect Assessment & Plan Assessment & Plan (1) Contact dermatitis: Code(s): L25.9 - Unspecified contact dermatitis, unspecified cause Qualifiers: Contact dermatitis type: irritant Contact dermatitis trigger: non-food plants Qualified Code(s): L24.7 - Irritant contact dermatitis due to plants, except food Plan: Patient seen and evaluated. Non-toxic appearing No cellulitis on exam Will finish cephalexin Discussed discontinue tecnu Avoid scratching Benadryl at night to help with itching Open sores use neosporin F/U with OBGYN Call office with concerns Patient gave verbal understanding and had no additional questions or concerns at time of discharge All questions answered (2) : Code(s): Z34.90 - Encounter for supervision of normal , unspecified, unspecified trimester Qualifiers: Weeks of gestation: less than 8 weeks Qualified Code(s): Z3A.01 - Less than 8 weeks gestation of Plan she has plans to f/u with OBGYN for continual care Medications: New diphenhydramine HCl (Benadryl Allergy) 12.5 mg (5 mL) PO BEDTIME PRN 118 mL 0RF sleep Coding Level of Care Code Est Pt Level 3 (53978) Diagnoses Irritant contact dermatitis due to plants, except food L24.7 Contact dermatitis type: irritant Contact dermatitis trigger: non-food plants Less than 8 weeks gestation of Z3A.01 Weeks of gestation: less than 8 weeks
== END 2024-10-04 10:06 | disposition home or self-care (01) ==
PROVIDERS: PCP Internal Medicine; Visit Provider Physician Assistant
DX: L24.7 Irritant contact dermatitis due to plants, except food (principal); Z3A.01 Less than 8 weeks gestation of pregnancy

== ENCOUNTER 2024-11-12 14:24 | Outpatient (AMB) | payer BC, SELFPAY ==
--- NOTE | 2024-11-12 14:24 | MHC.OFFVIS ---
Intake Visit Reasons: Follow up 6 mo Intake Note: Pt presents to the office today for a 6 month follow up for migraines. Allergies Doxycycline Hyclate Allergy (Unknown, Verified 11/12/24 14:25) nausea, vomiting, nausea and vomiting bee venom protein (honey bee) Adverse Reaction (Mild, Verified 11/12/24 14:25) hives Medication List - Last Reconciled 11/12/24 by MARCELINA Chen albuterol sulfate 90 mcg/actuation (ProAir HFA) 1 inh inhalation QID PRN aspirin 162 mg PO DAILY no.167-folic acid-dha 400 mcg- 25 mg (One-A-Day ) tabs PO triamcinolone acetonide 0.1% appl topical BID venlafaxine ER 75 mg PO DAILY HPI Comments Details: 29-yr-old female presents for f/u televideo visit for migraine. 06/11/24, MR/MR head/brain wo con Unremarkable MRI of the brain without contrast. Patient reports she is currently 13 weeks . She is 9 months from the delivery of her youngest son. This will make 4 children. She has decided to stop working altogether, and we will be a [id number] mother. She states she has stopped all of her medications since then he she was , other than recently starting on venlafaxine ER 75 mg daily. She notes that her migraine attacks her always worse when she is . She still has significant photophobia and phonophobia. Patient reports that prior to becoming , she started Nurtec, which was helping to reduce her headache symptoms without adverse effect. Baseline headache characteristics: Aura: Visual/sensory aura of wavy lines and tingling prior to onset of headache. Headache: 1st s/s is blurry vision, followed by severe throbbing usually right eye/frontal, right occipital/neck pain a/w photophobia, phonophobia, osmophobia, allodynia, N/V, some dizziness, brain fog, activity intolerance, fatigue/tiredness. Postdrome: Residual headache PFSH Medical History depression Migraine headache with aura Chlamydia infection Lump of right breast Mixed anxiety and depressive disorder Rash of face Vitamin D deficiency depression Exercise induced bronchospasm Preeclampsia Surgical History H/O eye surgery No pertinent past surgical history Family History Mother Breast cancer, Onset Age: 46 Mental health disorder Paternal Grandmother Diabetes mellitus Breast cancer Maternal Grandfather Arteriosclerotic heart disease (ASHD) Sister Mental health disorder Social History Housing: Apartment Alcohol intake: former Patient Tobacco Use Status: Never used Tobacco e-Cigarette/Vaping Use: Never Used service: No Current occupational status: employed Cognitive needs: No Hearing needs: No Vision needs: No Female Reproductive History Menstrual Age of Menarche: 13 Physical Exam Const General: cooperative and no acute distress Orientation/consciousness: patient oriented x3 Resp Effort & Inspection: normal respiratory effort and able to speak in complete sentences Neuro General: patient oriented x3 and moves all extremities Cognition (Neuro): normal cognition Psych Appearance: grossly normal Mental Status: mental status grossly normal Speech and movement: Normal speech and movement present Affect: normal affect Attitude: cooperative Thought process: Normal thought process present Telehealth Telehealth Telehealth Platform: VIDDIX Location of provider rendering services: practice address Location of patient: address on file Patient Identification confirmed using: Name, : Yes Telehealth method: video Patient verbally consented to treatment: Yes Patient verbally consented to billing insurance company: Yes Patient informed of any privacy concerns related to visit: Yes Minutes spent on Phone/Video with Pt.: 10 Assessment & Plan Assessment & Plan (1) Migraine headache with aura: Comment: Increased headaches likely r/t pt stopping migraine tx for . Code(s): G43.109 - Migraine with aura, not intractable, without status migrainosus Category: Medical Qualifiers: Status migrainosus presence: without status migrainosus Intractability: not intractable Qualified Code(s): G43.109 - Migraine with aura, not intractable, without status migrainosus (2) Paresthesia: Code(s): R20.2 - Paresthesia of skin Category: Medical (3) Visual aura: Code(s): H53.9 - Unspecified visual disturbance Category: Medical (4) : Code(s): Z34.90 - Encounter for supervision of normal , unspecified, unspecified trimester Category: Medical Qualifiers: Weeks of gestation: less than 8 weeks Qualified Code(s): Z3A.01 - Less than 8 weeks gestation of Plan Reviewed interval brain MRI with and without contrast, results were unremarkable. For overall headache management: Continue to optimize good self-care, including but not limited to maintaining a healthy diet, adequate fluid intake, adequate sleep, and engaging in regular physical activity. For photophobia: Patient may try blue light filtering glasses, green glasses, green light therapy. Track headaches. Pt to notify us and/or her OB w/ any new/worrisome/red flag headache symptoms. ? For acute headache treatment: Resume Nerivio 45 min neurostimulation, may adjunct w/ cold cap, warm foot bath. May continue Rizatriptan 10mg tab, 1/2 - 1 tab (5-10mg) at onset of headache, may repeat in 2 hours. Max of 2 tabs (200mg) per 24 hours. May adjunct with OTC Tylenol 650mg q 4 hours prn. Metoclopramide 5mg qid prn- for severe migraine headache and nausea. Trial Sumatriptan 20mg nasal spray: Inhale one nasal spray into one nostril at onset of headache, may repeat in 2 hours. Max of 2 nasal sprays per 24 hours. May take sumatriptan with OTC Tylenol 650-1,000mg every 4-6 hours as needed. Potential adverse effects of nasal triptans, include but are not limited to nasal irritation, nausea, fatigue, chest tightness/tingling (usually passes within a few minutes), medication overuse headaches. Hold Zofran ODT 4-8mg prn. Previous acute migraine medication trials: Sumatriptan 100mg - ineffective. Acute migraine medication contraindications: NSAIDs, DHE, ditans, gepant d/t . Future considerations- lidocaine nasal spray-after current ? ? For migraine headache prevention medication: Continue venlafaxine as ordered, this may help with the migraine prevention as well. May resume Magnesium 400mg qhs Hold Riboflavin 400mg qam.. Hold Rimegepant ODT (Nurtec ODT) 75mg, 1 tab every other day. Max of 1 tabs (75mg) per 24 hours. Potential adverse effects, include but are not limited to fatigue, nausea, dry mouth, constipation. Previous migraine prevention medication trials: Propranolol 20mg tid- ineffective after > 12 wks. Topiramate 25-50 mg q.h.s.-ineffective Migraine prevention medication contraindications: Topiramate and Depakote and CGRP mabs (Aimovig/Emgality/Ajovy/Vyepti) and Qulipta/Nurtec- as patient is currently Future considerations: CGRP MaB-after current ? Monitor fatigue and cognitive difficulties. Future considerations: sleep study, neuro-psych eval. ? Will follow-up upon review of above and patient to follow-up in clinic in 3-6 months or sooner prn. Medications: New sumatriptan 20 mg/actuation administer into one nostril as a single dose; if 2nd dose needed,administer into other nostril after at least 2 hrs, NTE 2 doses (40 mg) per episode 20 mg intranasal Q2H PRN 6 ea 6RF migraine headache 25 days Coding Level of Care Code Tele Est Pt Level 4 (83030) Diagnoses Migraine with aura and without status migrainosus, not intractable G43.109 Status migrainosus presence: without status migrainosus Intractability: not intractable Paresthesia R20.2 Visual aura H53.9 Less than 8 weeks gestation of Z3A.01 Weeks of gestation: less than 8 weeks
--- OUTSIDE RECORDS SUMMARY | 2024-11-12 15:07 | XMS_ITS | Clinical Summary ---
Author Organization [facility] Address [address] [place] [address] Phone Care Team Providers Care Food Concession Manager Name Role Phone Hayde Kiser Unavailable Michael Miller MD Unavailable [phone] Allergies Active Allergy Reactions Criticality Noted Date Comments Bee Sting Kit Anaphylaxis,Angioedema 12/21/2023 Doxycycline 12/21/2023 Medications BABY ASPIRIN ORAL Take 81 mg by mouth 1 time each day. Active omeprazole (PriLOSEC) [address] capsule Take 20 mg by mouth in the morning. Take before meals. Do not crush or chew. Active vit,calc76/iron/ folic (PNV 29-1 ORAL) Take by mouth 1 time each day. Active acetaminophen (Tylenol) 325 mg suppository Insert into the rectum every 4 hours if needed for mild pain or fever. Active Social History Tobacco Use Types Packs/Day Years Used Date Smoking Tobacco: Never Smokeless Tobacco: Never Tobacco Cessation:Counseling Given: Not Answered Alcohol Use Standard Drinks/Week Comments Not Currently 0 (1 standard drink = 0.6 oz pur e alcohol) Comments No Sex and Gender Information Value Date Recorded Sex Assigned at Not on file Legal Sex Female 12:55 PM EDT Gender Identity Not on file Sexual Orientation Not on file Last Filed Vital Signs Vital Sign Reading Time Taken Comments Blood Pressure 135/89 12/27/2023 1:00 PM EDT reassesed 122/92- patient reported just having had coffee Pulse 104 12/27/2023 1:00 PM EDT Temperature 36.4 C (97.5 F) 12/27/2023 1:00 PM EDT Respiratory Rate - - Oxygen Saturation 99% 12/27/2023 1:0 0 PM EDT Inhaled Oxygen Concentration - - Weight 66 kg (145 lb 8.1 oz) 12/27/2023 1:00 PM EDT Height 165.1 cm (5' 5 ) 12/27/2023 1:00 PM EDT Body Mass Index 24.21 12/27/2023 1:00 PM EDT Plan of Treatment Health Maintenance Due Date Last Done Comments HIV Screening 1995 MMR Vaccines (1 of 1 - Stand clay series) 10/12/1996 Varicella Vaccines (1 of 2 - 13+ 2-dose series) 10/12/2008 Hepatitis C Screening 10/12/2013 Hepatitis B Vaccines (1 of 3 - 19+ 3-dose series) 10/12/2014 HPV Vaccines (1 - 3-dose SCD M series) 10/12/2022 COVID-19 Vaccine (2023-2 5 season) 2023 DTaP/Tdap/Td Vaccines (2 - T d or Tdap) 12/12/2023 11/14/2023 Influenza Vaccine (#1) 2024 HIB Vaccines Aged Out No longer eligi ble based on patient's age to complete this topic Hepatitis A Vaccines Aged Out No long er eligible based on patient's age to complete this topic IPV Vaccines Aged Out No longer eligi ble based on patient's age to complete this topic Meningococcal B Vaccine Aged Out No l onger eligible based on patient's age to complete this topic Meningococcal Vaccine Aged Out No sandrita ирина eligible based on patient's age to complete this topic Pneumococcal Vaccine: Pediat rics (0 to 5 Years) and At-Risk Patients (6 to 49 Years) Aged Out No longer eligi ble based on patient's age to complete this topic Rotavirus Vaccines Aged Out No longer eligible based on patient's age to complete this topic [place] [address] [place] [address] CROSS - O BLUE CROSS - OOS Care Teams Food Concession Manager Relationship Specialty Start Date End Date Hayde Kiser [address] [place] [address] Referring Provider Obstetrics and Gynecology 12/21/23 Michael Miller MD [address] [place] [id number] Pediatric Surgery 12/23/23
== END 2024-11-12 15:58 | disposition home or self-care (01) ==
PROVIDERS: PCP Internal Medicine; Visit Provider Nurse Practitioner Family
DX: G43.109 Migraine with aura, not intractable, without status migrainosus (principal); R20.2 Paresthesia of skin; H53.9 Unspecified visual disturbance; Z3A.01 Less than 8 weeks gestation of pregnancy
CPT/HCPCS: 99214